=== PATIENT | male | born 1945 | race Caucasian/White ===

== ENCOUNTER 2022-08-28 07:06 | Inpatient (IN) | payer MEDICARE, OTHER ==
[~2022-08-28] VITALS: Ht 180.3 cm; Wt 72.7 kg
[2022-08-28] MEDS ORDERED: VENL-193 PO (07:36)
[2022-08-28] MEDS ORDERED: METF-1211 PO (07:36)
[2022-08-28] MEDS ORDERED: GABA-1181 PO (07:36)
[2022-08-28] MEDS ORDERED: GLIP5TAB12 PO (07:36)
[2022-08-28] MEDS ORDERED: ATOR10TA PO (07:36)
[2022-08-28] MEDS ORDERED: ASPI-1450 PO (07:36)
[2022-08-28] MEDS ORDERED: CYAN500T56 PO (07:36)
[2022-08-28] MEDS ORDERED: METO25 PO (07:36)
[2022-08-28] MEDS ORDERED: EMPA25TA3 PO (07:36)
[2022-08-28 08:30] LABS: BASOPHILS % (AUTO) 1.4 % (0.0-2.0); EOSINOPHILS % (AUTO) 0.8 % (1.0-6.0); HEMATOCRIT 38.1 % (41-53); LYMPHOCYTES # (AUTO) 0.8 K/uL (1.0-4.8); LYMPHOCYTES % (AUTO) 8.9 % (22.0-44.0); MEAN CORPUSCULAR HEMOGLOBIN 32.8 pg (26.0-34.0); MEAN CORPUSCULAR HGB CONC 34.1 G/dL (31.0-37.0); MEAN CORPUSCULAR VOLUME 96 fL (80-100); MONOCYTES # (AUTO) 0.6 K/uL (0.1-1.0); MONOCYTES % (AUTO) 6.4 % (2.0-9.0); NEUTROPHILS # (AUTO) 7.6 K/uL (1.8-7.7); NEUTROPHILS % (AUTO) 82.5 % (40.0-70.0); PLATELET COUNT (AUTO) 357 K/uL (150-450); RED BLOOD CELL COUNT(AUTO) 3.95 MIL/uL (4.50-5.90); RED CELL DISTRIBUTION WIDTH 13.8 % (11.5-14.5)
[2022-08-28 08:40] LABS: ANION GAP 9 mmol/L (8-16); CALCIUM, TOTAL 9.5 mg/dL (8.8-10.5); CARBON DIOXIDE 28 mmol/L (22-29); CHLORIDE 102 mmol/L (98-107); CREATININE 1.22 mg/dL (0.60-1.30); GLOMERULAR FILTR. RATE CALC 57 mL/min (>60); GLUCOSE,RANDOM 175 mg/dL (70-110); POTASSIUM 4.1 mmol/L (3.5-5.1); SODIUM SERUM 139 mmol/L (136-145); UREA NITROGEN, BLOOD 24 mg/dL (7-18)
[2022-08-28 08:47] LABS: ALANINE AMINOTRANSFERASE 21 U/L (12-78); ALBUMIN 3.5 g/dL (3.4-5.0); ALKALINE PHOSPHATASE 87 U/L (46-116); ASPARTATE AMINOTRANSFERASE 28 U/L (15-37); BILIRUBIN,TOTAL 0.5 mg/dL (0.1-1.0); TOTAL PROTEIN, SERUM 7.9 g/dL (6.4-8.2)
[2022-08-28 12:51] LABS: AMPHET/METH SCREEN,URINE NEGATIVE (NEGATIVE); BARBITURATE SCREEN, URINE NEGATIVE (NEGATIVE); BENZODIAZEPINES SCREEN,URINE NEGATIVE (NEGATIVE); CANNABINOID SCREEN,URINE NEGATIVE (NEGATIVE); COCAINE SCREEN,URINE NEGATIVE (NEGATIVE); METHADONE SCREEN, URINE NEGATIVE (NEGATIVE); OPIATE SCREEN,URINE NEGATIVE (NEGATIVE); PHENCYCLIDINE SCREEN,URINE NEGATIVE (NEGATIVE)
[2022-08-28] MEDS ORDERED: LORazepam 1 MG TABLET PO ONE ×2 (13:30→23:30)
[2022-08-28 16:22] LABS: APPEARANCE,URINE CLEAR (CLEAR); BILIRUBIN,URINE NEGATIVE (NEGATIVE); GLUCOSE, URINE (UA) >=1000 mg/dL (NEGATIVE); KETONES,URINE TRACE mg/dL (NEGATIVE); LEUKOCYTE ESTERASE ,URINE NEGATIVE (NEGATIVE); NITRATE,URINE NEGATIVE (NEGATIVE); OCCULT BLOOD,URINE NEGATIVE (NEGATIVE); PH,URINE 5.5 (5.0-8.0); PROTEIN,URINE NEGATIVE (NEGATIVE); UROBILINOGEN,URINE <=1.0 mg/dL (<=1.0)
[2022-08-28 16:45] LABS: BACTERIA,URINE None Seen /HPF (None Seen); RBC,URINE None Seen /HPF (0-2); SQUAMOUS EPITHELIAL CELL,UR Few /LPF (None Seen); WBC,URINE None Seen /HPF (0-5)
[2022-08-28] MEDS ORDERED: OLANZapine 5 MG TABLET PO ONE (17:00)
[2022-08-28] MEDS ORDERED: LORazepam 2 MG/ML VIAL IM ONE (17:15)
[2022-08-28] MEDS ORDERED: MIDAZOLAM HCL 2 MG/2 ML VIAL IM ONE (18:00)
[2022-08-28] MEDS ORDERED: LORazepam 1 MG TABLET PO PRN (23:30)
[2022-08-29] MEDS ORDERED: HALOPERIDOL LACTATE 5 MG/ML VIAL IM ONE
[2022-08-29] MEDS ORDERED: DiphenhydrAMINE HCL 50 MG/ML VIAL IM ONE ×2 (00:15)
[2022-08-29 02:16] LABS: COVID AG,FIA SOURCE NASOPHARYNGEAL
[2022-08-29] MEDS ORDERED: GlipiZIDE 5 MG TABLET PO SCH (06:30)
[2022-08-29] MEDS ORDERED: MetFORMIN HCL 500 MG ER TABLET PO SCH (08:00)
[2022-08-29] MEDS ORDERED: GABAPENTIN 300 MG CAPSULE PO ONE (09:00)
[2022-08-29] MEDS ORDERED: VENLAFAXINE HCL 75 MG ER CAPSULE PO SCH (09:00)
[2022-08-29] MEDS ORDERED: MetFORMIN HCL 500 MG ER TABLET PO ONE (09:00)
[2022-08-29] MEDS ORDERED: GlipiZIDE 5 MG TABLET PO ONE (09:00)
[2022-08-29] MEDS ORDERED: METOPROLOL TARTRATE 25 MG TABLET PO ONE (09:00)
[2022-08-29] MEDS ORDERED: VENLAFAXINE HCL 75 MG ER CAPSULE PO ONE (09:00)
[2022-08-29] MEDS ORDERED: LORazepam 2 MG TABLET ONE (11:49)
[2022-08-29 17:52] LABS: GLUCOSE,POINT OF CARE 144 MG/DL (70-110)
[2022-08-29] MEDS ORDERED: VENL-67 PO (19:57)
[2022-08-29] MEDS ORDERED: ONDANSETRON HCL 4 MG/2 ML VIAL IVP PRN (20:00)
[2022-08-29] MEDS ORDERED: IOHEXOL 350 MG/ML 100 ML VIAL ONE (20:26)
[2022-08-29] MEDS ORDERED: SODIUM CHLORIDE 0.9% 100 ML ONE (20:26)
[2022-08-29] MEDS: DOCUSATE SODIUM 100 MG CAPSULE PO SCH (21:00)
[2022-08-29] MEDS: QUEtiapine FUMARATE 25 MG TABLET PO SCH (21:28)
[2022-08-29] MEDS: HEPARIN SODIUM,PORCINE 5,000 UNITS/ML VIAL SQ SCH (23:53)
[2022-08-30] MEDS ORDERED: DEXTROSE 50%-WATER 25 GM/50 ML SYRINGE IVP PRN
[2022-08-30] MEDS: HEPARIN SODIUM,PORCINE 5,000 UNITS/ML VIAL SQ SCH ×3 (08:43→23:58)
[2022-08-30] MEDS: ASPIRIN 81 MG CHEWABLE TABLET PO SCH (08:44)
[2022-08-30] MEDS: DOCUSATE SODIUM 100 MG CAPSULE PO SCH ×2 (08:45→20:20)
[2022-08-30] MEDS: CHOLECALCIFEROL (VIT D3) 2,000 UNITS [50 MCG] TABLET PO SCH (11:51)
[2022-08-30] MEDS ORDERED: LORazepam 2 MG/ML VIAL IVP PRN (18:00)
[2022-08-30] MEDS ORDERED: DiphenhydrAMINE HCL 50 MG/ML VIAL IM ONE (18:00)
[2022-08-30] MEDS ORDERED: HALOPERIDOL LACTATE 5 MG/ML VIAL IM ONE (18:00)
[2022-08-30] MEDS: ATORVASTATIN CALCIUM 20 MG TABLET PO SCH (20:22)
[2022-08-30] MEDS: QUEtiapine FUMARATE 25 MG TABLET PO SCH (20:22)
[2022-08-30 21:33] VITALS: BP 134/71
[2022-08-31] MEDS: INSULIN LISPRO 100 UNITS/ML SQ PRN ×4 (00:13→21:13)
[2022-08-31 02:16] LABS: GLUCOMETER DEV NAME(LOC) 6N.1; GLUCOSE,POINT OF CARE 196 MG/DL (70-110)
[2022-08-31 04:09] VITALS: BP 146/65
[2022-08-31 07:32] VITALS: BP 144/77
[2022-08-31 07:52] LABS: GLUCOMETER DEV NAME(LOC) 6N.1; GLUCOSE,POINT OF CARE 163 MG/DL (70-110)
[2022-08-31] MEDS: CHOLECALCIFEROL (VIT D3) 2,000 UNITS [50 MCG] TABLET PO SCH (08:22)
[2022-08-31] MEDS: HEPARIN SODIUM,PORCINE 5,000 UNITS/ML VIAL SQ SCH ×3 (08:22→23:51)
[2022-08-31] MEDS: DOCUSATE SODIUM 100 MG CAPSULE PO SCH ×2 (08:22→20:12)
[2022-08-31] MEDS: ASPIRIN 81 MG CHEWABLE TABLET PO SCH (08:23)
[2022-08-31 13:50] VITALS: BP 129/65
[2022-08-31 15:24] VITALS: BP 130/69
[2022-08-31 19:20] VITALS: BP 122/58
[2022-08-31] MEDS: ATORVASTATIN CALCIUM 20 MG TABLET PO SCH (20:12)
[2022-08-31] MEDS: QUEtiapine FUMARATE 25 MG TABLET PO SCH (20:12)
[2022-08-31 22:06] LABS: GLUCOMETER DEV NAME(LOC) 6N.1; GLUCOSE,POINT OF CARE 190 MG/DL (70-110)
[2022-08-31 22:07] LABS: GLUCOMETER DEV NAME(LOC) 6N.1; GLUCOSE,POINT OF CARE 286 MG/DL (70-110)
[2022-08-31 22:07] LABS: GLUCOMETER DEV NAME(LOC) 6N.1; GLUCOSE,POINT OF CARE 247 MG/DL (70-110)
[2022-09-01 03:11] VITALS: BP 136/74
[2022-09-01] MEDS: INSULIN LISPRO 100 UNITS/ML SQ PRN ×4 (05:43→20:56)
[2022-09-01 06:46] LABS: GLUCOMETER DEV NAME(LOC) 6N.1; GLUCOSE,POINT OF CARE 241 MG/DL (70-110)
[2022-09-01 07:59] VITALS: BP 140/89
[2022-09-01] MEDS: CHOLECALCIFEROL (VIT D3) 2,000 UNITS [50 MCG] TABLET PO SCH (08:08)
[2022-09-01] MEDS: DOCUSATE SODIUM 100 MG CAPSULE PO SCH ×2 (08:08→20:47)
[2022-09-01] MEDS: HEPARIN SODIUM,PORCINE 5,000 UNITS/ML VIAL SQ SCH ×3 (08:09→23:34)
[2022-09-01] MEDS: ASPIRIN 81 MG CHEWABLE TABLET PO SCH (08:09)
[2022-09-01 13:06] LABS: GLUCOMETER DEV NAME(LOC) 6S.1B; GLUCOSE,POINT OF CARE 293 MG/DL (70-110)
[2022-09-01] MEDS ORDERED: LORazepam 2 MG/ML VIAL IVP PRN (13:45)
[2022-09-01] MEDS: LORazepam 2 MG/ML VIAL IM PRN (14:08)
[2022-09-01] MEDS: HALOPERIDOL LACTATE 5 MG/ML VIAL IM PRN (14:15)
[2022-09-01 14:55] VITALS: BP 138/78
[2022-09-01 18:21] LABS: GLUCOMETER DEV NAME(LOC) 6S.1B; GLUCOSE,POINT OF CARE 221 MG/DL (70-110)
[2022-09-01 19:25] VITALS: BP 144/67
[2022-09-01] MEDS: ATORVASTATIN CALCIUM 20 MG TABLET PO SCH (20:47)
[2022-09-01] MEDS: QUEtiapine FUMARATE 25 MG TABLET PO SCH (20:47)
[2022-09-01 23:41] LABS: GLUCOMETER DEV NAME(LOC) 6S.1B; GLUCOSE,POINT OF CARE 199 MG/DL (70-110)
[2022-09-02 03:45] VITALS: BP 139/74
[2022-09-02] MEDS: INSULIN LISPRO 100 UNITS/ML SQ PRN ×4 (05:49→20:26)
[2022-09-02 06:36] LABS: GLUCOMETER DEV NAME(LOC) 6S.1B; GLUCOSE,POINT OF CARE 206 MG/DL (70-110)
[2022-09-02] MEDS: DOCUSATE SODIUM 100 MG CAPSULE PO SCH ×2 (08:01→20:24)
[2022-09-02] MEDS: CHOLECALCIFEROL (VIT D3) 2,000 UNITS [50 MCG] TABLET PO SCH (08:01)
[2022-09-02] MEDS: ASPIRIN 81 MG CHEWABLE TABLET PO SCH (08:01)
[2022-09-02] MEDS: HEPARIN SODIUM,PORCINE 5,000 UNITS/ML VIAL SQ SCH ×3 (08:07→23:22)
[2022-09-02 08:31] VITALS: BP 156/68
[2022-09-02] MEDS ORDERED: QUEtiapine FUMARATE 25 MG TABLET PO SCH (09:00)
[2022-09-02] MEDS: QUEtiapine FUMARATE 25 MG TABLET PO SCH ×2 (12:23→20:24)
[2022-09-02] MEDS: ACETAMINOPHEN 325 MG TABLET PO PRN (14:57)
[2022-09-02 15:15] VITALS: BP 138/76
[2022-09-02] MEDS: HALOPERIDOL LACTATE 5 MG/ML VIAL IM PRN (17:29)
[2022-09-02] MEDS: MetFORMIN HCL 500 MG TABLET PO SCH (17:52)
[2022-09-02 20:00] VITALS: BP 144/73
[2022-09-02] MEDS: ATORVASTATIN CALCIUM 20 MG TABLET PO SCH (20:24)
[2022-09-02] MEDS: LORazepam 2 MG/ML VIAL IM PRN (22:05)
[2022-09-03 03:21] LABS: GLUCOMETER DEV NAME(LOC) 6N.1; GLUCOSE,POINT OF CARE 289 MG/DL (70-110)
[2022-09-03 03:21] LABS: GLUCOMETER DEV NAME(LOC) 6N.1; GLUCOSE,POINT OF CARE 282 MG/DL (70-110)
[2022-09-03 05:15] VITALS: BP 128/69
[2022-09-03] MEDS: INSULIN LISPRO 100 UNITS/ML SQ PRN ×4 (05:21→20:45)
[2022-09-03 07:28] VITALS: BP 114/75
[2022-09-03 08:36] LABS: GLUCOMETER DEV NAME(LOC) 6N.1; GLUCOSE,POINT OF CARE 193 MG/DL (70-110)
[2022-09-03] MEDS: CHOLECALCIFEROL (VIT D3) 2,000 UNITS [50 MCG] TABLET PO SCH (09:09)
[2022-09-03] MEDS: HEPARIN SODIUM,PORCINE 5,000 UNITS/ML VIAL SQ SCH ×3 (09:09→16:25)
[2022-09-03] MEDS: ASPIRIN 81 MG CHEWABLE TABLET PO SCH (09:10)
[2022-09-03] MEDS: DOCUSATE SODIUM 100 MG CAPSULE PO SCH ×2 (09:10→20:38)
[2022-09-03] MEDS: MetFORMIN HCL 500 MG TABLET PO SCH ×2 (09:10→17:49)
[2022-09-03] MEDS: QUEtiapine FUMARATE 25 MG TABLET PO SCH ×2 (09:11→20:38)
[2022-09-03 11:14] VITALS: BP 120/73
[2022-09-03 13:51] LABS: GLUCOMETER DEV NAME(LOC) 6N.1; GLUCOSE,POINT OF CARE 229 MG/DL (70-110)
[2022-09-03 15:11] VITALS: BP 152/78
[2022-09-03] MEDS: HALOPERIDOL LACTATE 5 MG/ML VIAL IM PRN (16:46)
[2022-09-03 17:58] LABS: GLUCOMETER DEV NAME(LOC) 6S.1B; GLUCOSE,POINT OF CARE 269 MG/DL (70-110)
[2022-09-03] MEDS: ATORVASTATIN CALCIUM 20 MG TABLET PO SCH (20:38)
[2022-09-03 20:42] VITALS: BP 128/75
[2022-09-03 22:21] LABS: GLUCOMETER DEV NAME(LOC) 6S.1B; GLUCOSE,POINT OF CARE 216 MG/DL (70-110)
[2022-09-04] MEDS: HEPARIN SODIUM,PORCINE 5,000 UNITS/ML VIAL SQ SCH ×4 (00:25→23:32)
[2022-09-04 04:46] VITALS: BP 121/69
[2022-09-04] MEDS: INSULIN LISPRO 100 UNITS/ML SQ PRN ×4 (05:39→20:11)
[2022-09-04] MEDS: MetFORMIN HCL 500 MG TABLET PO SCH ×2 (07:58→17:41)
[2022-09-04] MEDS: CHOLECALCIFEROL (VIT D3) 2,000 UNITS [50 MCG] TABLET PO SCH (08:03)
[2022-09-04] MEDS: DOCUSATE SODIUM 100 MG CAPSULE PO SCH ×2 (08:03→20:02)
[2022-09-04] MEDS: ASPIRIN 81 MG CHEWABLE TABLET PO SCH (08:03)
[2022-09-04] MEDS: QUEtiapine FUMARATE 25 MG TABLET PO SCH ×2 (08:04→20:02)
[2022-09-04 08:05] VITALS: BP 105/76
[2022-09-04] MEDS ORDERED: QUEtiapine FUMARATE 25 MG TABLET PO ONE (10:00)
[2022-09-04 11:11] LABS: GLUCOMETER DEV NAME(LOC) 6S.1B; GLUCOSE,POINT OF CARE 213 MG/DL (70-110)
[2022-09-04 13:19] VITALS: BP 121/75
[2022-09-04 17:56] LABS: GLUCOMETER DEV NAME(LOC) 6S.1B; GLUCOSE,POINT OF CARE 246 MG/DL (70-110)
[2022-09-04 19:18] VITALS: BP 145/94
[2022-09-04] MEDS: ATORVASTATIN CALCIUM 20 MG TABLET PO SCH (20:02)
[2022-09-04 20:06] LABS: GLUCOMETER DEV NAME(LOC) 6N.1; GLUCOSE,POINT OF CARE 247 MG/DL (70-110)
[2022-09-04 22:01] LABS: GLUCOMETER DEV NAME(LOC) 6S.1B; GLUCOSE,POINT OF CARE 288 MG/DL (70-110)
[2022-09-05 04:30] VITALS: BP 134/67
[2022-09-05] MEDS: INSULIN LISPRO 100 UNITS/ML SQ PRN ×3 (06:01→20:54)
[2022-09-05 06:37] LABS: GLUCOMETER DEV NAME(LOC) 6N.1; GLUCOSE,POINT OF CARE 202 MG/DL (70-110)
[2022-09-05 07:37] VITALS: BP 125/76
[2022-09-05] MEDS: MetFORMIN HCL 500 MG TABLET PO SCH ×2 (09:13→17:17)
[2022-09-05] MEDS: QUEtiapine FUMARATE 25 MG TABLET PO SCH ×2 (09:13→20:35)
[2022-09-05] MEDS: DOCUSATE SODIUM 100 MG CAPSULE PO SCH ×2 (09:14→20:35)
[2022-09-05] MEDS: ASPIRIN 81 MG CHEWABLE TABLET PO SCH (09:14)
[2022-09-05] MEDS: HEPARIN SODIUM,PORCINE 5,000 UNITS/ML VIAL SQ SCH ×2 (09:14→17:16)
[2022-09-05] MEDS: HALOPERIDOL LACTATE 5 MG/ML VIAL IM PRN (09:20)
[2022-09-05] MEDS: CHOLECALCIFEROL (VIT D3) 2,000 UNITS [50 MCG] TABLET PO SCH (09:29)
[2022-09-05 16:22] VITALS: BP 130/70
[2022-09-05 19:35] VITALS: BP 144/69
[2022-09-05] MEDS: ATORVASTATIN CALCIUM 20 MG TABLET PO SCH (20:35)
[2022-09-05 22:56] LABS: GLUCOMETER DEV NAME(LOC) 6N.1; GLUCOSE,POINT OF CARE 300 MG/DL (70-110)
[2022-09-05 22:57] LABS: GLUCOMETER DEV NAME(LOC) 6N.1; GLUCOSE,POINT OF CARE 177 MG/DL (70-110)
[2022-09-05 22:57] LABS: GLUCOMETER DEV NAME(LOC) 6N.1; GLUCOSE,POINT OF CARE 240 MG/DL (70-110)
[2022-09-06] MEDS: HEPARIN SODIUM,PORCINE 5,000 UNITS/ML VIAL SQ SCH ×4 (00:31→23:23)
[2022-09-06] MEDS: HALOPERIDOL LACTATE 5 MG/ML VIAL IM PRN ×2 (02:21→20:13)
[2022-09-06 03:45] VITALS: BP 102/61
[2022-09-06] MEDS: INSULIN LISPRO 100 UNITS/ML SQ PRN ×4 (06:22→20:11)
[2022-09-06 06:41] LABS: GLUCOMETER DEV NAME(LOC) 6N.2B; GLUCOSE,POINT OF CARE 198 MG/DL (70-110)
[2022-09-06 08:02] VITALS: BP 131/64
[2022-09-06] MEDS: QUEtiapine FUMARATE 25 MG TABLET PO SCH ×2 (09:16→20:10)
[2022-09-06] MEDS: CHOLECALCIFEROL (VIT D3) 2,000 UNITS [50 MCG] TABLET PO SCH (09:16)
[2022-09-06] MEDS: MetFORMIN HCL 500 MG TABLET PO SCH ×2 (09:17→18:00)
[2022-09-06] MEDS: DOCUSATE SODIUM 100 MG CAPSULE PO SCH ×2 (09:17→20:10)
[2022-09-06] MEDS: ASPIRIN 81 MG CHEWABLE TABLET PO SCH (09:17)
[2022-09-06] MEDS: LORazepam 2 MG/ML VIAL IM PRN (09:26)
[2022-09-06 13:51] LABS: GLUCOMETER DEV NAME(LOC) 6N.1; GLUCOSE,POINT OF CARE 261 MG/DL (70-110)
[2022-09-06 15:54] VITALS: BP 109/66
[2022-09-06 19:45] VITALS: BP 136/80
[2022-09-06] MEDS: ATORVASTATIN CALCIUM 20 MG TABLET PO SCH (20:10)
[2022-09-06 21:06] LABS: GLUCOMETER DEV NAME(LOC) 6N.1; GLUCOSE,POINT OF CARE 241 MG/DL (70-110)
[2022-09-07 02:16] LABS: GLUCOMETER DEV NAME(LOC) 6N.2B; GLUCOSE,POINT OF CARE 181 MG/DL (70-110)
[2022-09-07 05:45] VITALS: BP 115/54
[2022-09-07] MEDS: INSULIN LISPRO 100 UNITS/ML SQ PRN ×3 (06:35→20:36)
[2022-09-07 06:47] LABS: GLUCOMETER DEV NAME(LOC) 6N.2B; GLUCOSE,POINT OF CARE 209 MG/DL (70-110)
[2022-09-07 07:45] VITALS: BP 124/70
[2022-09-07] MEDS: QUEtiapine FUMARATE 25 MG TABLET PO SCH ×2 (08:06→20:34)
[2022-09-07] MEDS: ASPIRIN 81 MG CHEWABLE TABLET PO SCH (08:06)
[2022-09-07] MEDS: CHOLECALCIFEROL (VIT D3) 2,000 UNITS [50 MCG] TABLET PO SCH (08:06)
[2022-09-07] MEDS: DOCUSATE SODIUM 100 MG CAPSULE PO SCH ×2 (08:06→20:34)
[2022-09-07] MEDS: HEPARIN SODIUM,PORCINE 5,000 UNITS/ML VIAL SQ SCH ×3 (08:07→23:14)
[2022-09-07] MEDS: HALOPERIDOL LACTATE 5 MG/ML VIAL IM PRN ×2 (08:07→20:36)
[2022-09-07] MEDS: MetFORMIN HCL 850 MG TABLET PO SCH ×3 (09:46→18:00)
[2022-09-07 15:31] VITALS: BP 136/69
[2022-09-07 17:11] LABS: GLUCOMETER DEV NAME(LOC) 6S.1B; GLUCOSE,POINT OF CARE 226 MG/DL (70-110)
[2022-09-07 18:14] LABS: BASOPHILS % (AUTO) 0.4 % (0.0-2.0); EOSINOPHILS % (AUTO) 1.9 % (1.0-6.0); HEMATOCRIT 41.7 % (41-53); HEMOGLOBIN 13.8 g/dL (13.5-17.5); LYMPHOCYTES # (AUTO) 1.1 K/uL (1.0-4.8); LYMPHOCYTES % (AUTO) 16.1 % (22.0-44.0); MEAN CORPUSCULAR HEMOGLOBIN 31.7 pg (26.0-34.0); MEAN CORPUSCULAR HGB CONC 33.2 G/dL (31.0-37.0); MEAN CORPUSCULAR VOLUME 95 fL (80-100); MONOCYTES # (AUTO) 0.5 K/uL (0.1-1.0); MONOCYTES % (AUTO) 7.5 % (2.0-9.0); NEUTROPHILS # (AUTO) 4.9 K/uL (1.8-7.7); NEUTROPHILS % (AUTO) 74.1 % (40.0-70.0); PLATELET COUNT (AUTO) 298 K/uL (150-450); RED BLOOD CELL COUNT(AUTO) 4.37 MIL/uL (4.50-5.90)
[2022-09-07 18:19] LABS: ANION GAP 9 mmol/L (8-16); CALCIUM, TOTAL 9.4 mg/dL (8.8-10.5); CARBON DIOXIDE 29 mmol/L (22-29); CHLORIDE 96 mmol/L (98-107); CREATININE 1.13 mg/dL (0.60-1.30); GLOMERULAR FILTR. RATE CALC > 60 mL/min (>60); GLUCOSE,RANDOM 260 mg/dL (70-110); POTASSIUM 3.4 mmol/L (3.5-5.1); SODIUM SERUM 134 mmol/L (136-145); UREA NITROGEN, BLOOD 13 mg/dL (7-18)
[2022-09-07 19:45] VITALS: BP 127/82
[2022-09-07] MEDS: ATORVASTATIN CALCIUM 20 MG TABLET PO SCH (20:34)
[2022-09-07 23:07] LABS: GLUCOMETER DEV NAME(LOC) 6N.2B; GLUCOSE,POINT OF CARE 181 MG/DL (70-110)
[2022-09-07 23:07] LABS: GLUCOMETER DEV NAME(LOC) 6N.2B; GLUCOSE,POINT OF CARE 268 MG/DL (70-110)
[2022-09-08 06:00] VITALS: BP 130/69
[2022-09-08] MEDS: INSULIN LISPRO 100 UNITS/ML SQ PRN ×4 (06:17→20:31)
[2022-09-08] MEDS ORDERED: POTASSIUM CHLORIDE 20 MEQ ER TABLET PO ONE (07:45)
[2022-09-08 07:48] VITALS: BP 142/66
[2022-09-08] MEDS: HEPARIN SODIUM,PORCINE 5,000 UNITS/ML VIAL SQ SCH ×3 (08:45→23:31)
[2022-09-08] MEDS: MetFORMIN HCL 850 MG TABLET PO SCH ×2 (08:45→17:36)
[2022-09-08] MEDS: ASPIRIN 81 MG CHEWABLE TABLET PO SCH (08:46)
[2022-09-08] MEDS: CHOLECALCIFEROL (VIT D3) 2,000 UNITS [50 MCG] TABLET PO SCH (08:46)
[2022-09-08] MEDS: DOCUSATE SODIUM 100 MG CAPSULE PO SCH ×2 (08:46→20:13)
[2022-09-08] MEDS: QUEtiapine FUMARATE 25 MG TABLET PO SCH ×2 (08:46→20:12)
[2022-09-08 15:04] VITALS: BP 138/73
[2022-09-08 17:21] LABS: GLUCOMETER DEV NAME(LOC) 6N.1; GLUCOSE,POINT OF CARE 173 MG/DL (70-110)
[2022-09-08 18:01] LABS: GLUCOMETER DEV NAME(LOC) 6N.2B; GLUCOSE,POINT OF CARE 306 MG/DL (70-110)
[2022-09-08 18:02] LABS: GLUCOMETER DEV NAME(LOC) 6N.2B; GLUCOSE,POINT OF CARE 210 MG/DL (70-110)
[2022-09-08 19:12] VITALS: BP 144/72
[2022-09-08] MEDS: ATORVASTATIN CALCIUM 20 MG TABLET PO SCH (20:12)
[2022-09-08 21:36] LABS: GLUCOMETER DEV NAME(LOC) 6N.1; GLUCOSE,POINT OF CARE 223 MG/DL (70-110)
[2022-09-09 04:05] VITALS: BP 131/70
[2022-09-09] MEDS: HALOPERIDOL LACTATE 5 MG/ML VIAL IM PRN (04:28)
[2022-09-09] MEDS: INSULIN LISPRO 100 UNITS/ML SQ PRN ×4 (06:07→21:39)
[2022-09-09 06:46] LABS: GLUCOMETER DEV NAME(LOC) 6N.1; GLUCOSE,POINT OF CARE 193 MG/DL (70-110)
[2022-09-09] MEDS: HEPARIN SODIUM,PORCINE 5,000 UNITS/ML VIAL SQ SCH ×3 (08:17→23:24)
[2022-09-09] MEDS: DOCUSATE SODIUM 100 MG CAPSULE PO SCH ×2 (08:18→21:31)
[2022-09-09] MEDS: MetFORMIN HCL 850 MG TABLET PO SCH ×2 (08:18→18:11)
[2022-09-09] MEDS: CHOLECALCIFEROL (VIT D3) 2,000 UNITS [50 MCG] TABLET PO SCH (08:18)
[2022-09-09] MEDS: ASPIRIN 81 MG CHEWABLE TABLET PO SCH (08:19)
[2022-09-09] MEDS: QUEtiapine FUMARATE 25 MG TABLET PO SCH ×2 (08:19→21:31)
[2022-09-09 08:38] VITALS: BP 138/71
[2022-09-09 15:16] LABS: GLUCOMETER DEV NAME(LOC) 6S.1B; GLUCOSE,POINT OF CARE 266 MG/DL (70-110)
[2022-09-09 15:41] VITALS: BP 136/69
[2022-09-09 18:51] LABS: GLUCOMETER DEV NAME(LOC) 6N.1; GLUCOSE,POINT OF CARE 286 MG/DL (70-110)
[2022-09-09 19:40] VITALS: BP 133/74
[2022-09-09] MEDS: ATORVASTATIN CALCIUM 20 MG TABLET PO SCH (21:31)
[2022-09-10 04:55] VITALS: BP 114/62
[2022-09-10] MEDS: INSULIN LISPRO 100 UNITS/ML SQ PRN ×4 (06:06→20:35)
[2022-09-10] MEDS: ASPIRIN 81 MG CHEWABLE TABLET PO SCH (07:35)
[2022-09-10] MEDS: MetFORMIN HCL 850 MG TABLET PO SCH ×2 (07:35→18:07)
[2022-09-10] MEDS: DOCUSATE SODIUM 100 MG CAPSULE PO SCH ×2 (07:35→20:35)
[2022-09-10] MEDS: CHOLECALCIFEROL (VIT D3) 2,000 UNITS [50 MCG] TABLET PO SCH (07:35)
[2022-09-10] MEDS: HEPARIN SODIUM,PORCINE 5,000 UNITS/ML VIAL SQ SCH ×2 (07:36→15:59)
[2022-09-10] MEDS: QUEtiapine FUMARATE 25 MG TABLET PO SCH ×2 (07:36→20:35)
[2022-09-10 07:51] LABS: GLUCOMETER DEV NAME(LOC) 6N.1; GLUCOSE,POINT OF CARE 235 MG/DL (70-110)
[2022-09-10 07:51] LABS: GLUCOMETER DEV NAME(LOC) 6N.1; GLUCOSE,POINT OF CARE 191 MG/DL (70-110)
[2022-09-10 08:27] VITALS: BP 126/69
[2022-09-10] MEDS: LORazepam 2 MG/ML VIAL IM PRN (13:26)
[2022-09-10 15:01] VITALS: BP 142/61
[2022-09-10] MEDS ORDERED: LORazepam 2 MG/ML VIAL IM PRN (16:15)
[2022-09-10 19:40] VITALS: BP 146/55
[2022-09-10 20:11] LABS: GLUCOMETER DEV NAME(LOC) 6N.1; GLUCOSE,POINT OF CARE 293 MG/DL (70-110)
[2022-09-10 20:11] LABS: GLUCOMETER DEV NAME(LOC) 6N.1; GLUCOSE,POINT OF CARE 314 MG/DL (70-110)
[2022-09-10] MEDS: ATORVASTATIN CALCIUM 20 MG TABLET PO SCH (20:35)
[2022-09-11] MEDS: HEPARIN SODIUM,PORCINE 5,000 UNITS/ML VIAL SQ SCH ×3 (00:05→16:19)
[2022-09-11 04:33] VITALS: BP 136/67
[2022-09-11] MEDS: INSULIN LISPRO 100 UNITS/ML SQ PRN ×4 (05:37→20:52)
[2022-09-11] MEDS: MetFORMIN HCL 850 MG TABLET PO SCH ×2 (08:35→17:52)
[2022-09-11] MEDS: QUEtiapine FUMARATE 25 MG TABLET PO SCH ×2 (08:36→20:45)
[2022-09-11] MEDS: CHOLECALCIFEROL (VIT D3) 2,000 UNITS [50 MCG] TABLET PO SCH (08:36)
[2022-09-11] MEDS: DOCUSATE SODIUM 100 MG CAPSULE PO SCH ×2 (08:36→21:00)
[2022-09-11] MEDS: ASPIRIN 81 MG CHEWABLE TABLET PO SCH (08:36)
[2022-09-11 09:50] VITALS: BP 135/65
[2022-09-11 11:26] LABS: GLUCOMETER DEV NAME(LOC) 6N.1; GLUCOSE,POINT OF CARE 215 MG/DL (70-110)
[2022-09-11 11:26] LABS: GLUCOMETER DEV NAME(LOC) 6N.1; GLUCOSE,POINT OF CARE 252 MG/DL (70-110)
[2022-09-11 11:46] LABS: GLUCOMETER DEV NAME(LOC) 6N.1; GLUCOSE,POINT OF CARE 241 MG/DL (70-110)
[2022-09-11 15:00] VITALS: BP 136/73
[2022-09-11 19:15] VITALS: BP 116/73
[2022-09-11] MEDS: ATORVASTATIN CALCIUM 20 MG TABLET PO SCH (20:45)
[2022-09-11] MEDS: HALOPERIDOL LACTATE 5 MG/ML VIAL IM PRN (21:25)
[2022-09-11 21:52] LABS: GLUCOMETER DEV NAME(LOC) 6N.2B; GLUCOSE,POINT OF CARE 239 MG/DL (70-110)
[2022-09-11 21:52] LABS: GLUCOMETER DEV NAME(LOC) 6N.1; GLUCOSE,POINT OF CARE 286 MG/DL (70-110)
[2022-09-12] MEDS: HEPARIN SODIUM,PORCINE 5,000 UNITS/ML VIAL SQ SCH ×3 (01:00→16:06)
[2022-09-12] MEDS: LORazepam 2 MG/ML VIAL IM PRN (02:40)
[2022-09-12 05:30] VITALS: BP 119/78
[2022-09-12] MEDS: INSULIN LISPRO 100 UNITS/ML SQ PRN ×4 (05:42→20:59)
[2022-09-12] MEDS: ASPIRIN 81 MG CHEWABLE TABLET PO SCH (08:09)
[2022-09-12] MEDS: CHOLECALCIFEROL (VIT D3) 2,000 UNITS [50 MCG] TABLET PO SCH (08:10)
[2022-09-12] MEDS: MetFORMIN HCL 850 MG TABLET PO SCH ×2 (08:10→18:52)
[2022-09-12] MEDS: QUEtiapine FUMARATE 25 MG TABLET PO SCH ×2 (08:12→20:42)
[2022-09-12] MEDS: DOCUSATE SODIUM 100 MG CAPSULE PO SCH ×2 (08:26→20:42)
[2022-09-12 08:31] VITALS: BP 121/65
[2022-09-12 11:16] LABS: GLUCOMETER DEV NAME(LOC) 6N.1; GLUCOSE,POINT OF CARE 237 MG/DL (70-110)
[2022-09-12 13:21] LABS: GLUCOMETER DEV NAME(LOC) 6S.1B; GLUCOSE,POINT OF CARE 233 MG/DL (70-110)
[2022-09-12 15:13] VITALS: BP 116/69
[2022-09-12 19:11] LABS: GLUCOMETER DEV NAME(LOC) 6S.1B; GLUCOSE,POINT OF CARE 260 MG/DL (70-110)
[2022-09-12 19:38] VITALS: BP 138/63
[2022-09-12] MEDS: ATORVASTATIN CALCIUM 20 MG TABLET PO SCH (20:42)
[2022-09-12 21:21] LABS: GLUCOMETER DEV NAME(LOC) 6N.2B; GLUCOSE,POINT OF CARE 260 MG/DL (70-110)
[2022-09-13] MEDS: HEPARIN SODIUM,PORCINE 5,000 UNITS/ML VIAL SQ SCH ×4 (00:38→23:45)
[2022-09-13 03:30] VITALS: BP 114/63
[2022-09-13] MEDS: INSULIN LISPRO 100 UNITS/ML SQ PRN ×4 (05:53→20:55)
[2022-09-13 06:11] LABS: GLUCOMETER DEV NAME(LOC) 6N.2B; GLUCOSE,POINT OF CARE 248 MG/DL (70-110)
[2022-09-13 07:27] VITALS: BP 153/63
[2022-09-13] MEDS: QUEtiapine FUMARATE 25 MG TABLET PO SCH ×2 (07:32→20:01)
[2022-09-13] MEDS: CHOLECALCIFEROL (VIT D3) 2,000 UNITS [50 MCG] TABLET PO SCH (07:33)
[2022-09-13] MEDS: ASPIRIN 81 MG CHEWABLE TABLET PO SCH (07:33)
[2022-09-13] MEDS: DOCUSATE SODIUM 100 MG CAPSULE PO SCH ×2 (07:34→20:01)
[2022-09-13] MEDS: MetFORMIN HCL 500 MG TABLET PO SCH ×2 (07:43→17:39)
[2022-09-13 12:16] LABS: GLUCOMETER DEV NAME(LOC) 6N.1; GLUCOSE,POINT OF CARE 262 MG/DL (70-110)
[2022-09-13 15:03] VITALS: BP 115/59
[2022-09-13 19:05] LABS: GLUCOMETER DEV NAME(LOC) 6N.1; GLUCOSE,POINT OF CARE 227 MG/DL (70-110)
[2022-09-13 19:20] VITALS: BP 125/65
[2022-09-13] MEDS: ATORVASTATIN CALCIUM 20 MG TABLET PO SCH (20:01)
[2022-09-14] MEDS: HALOPERIDOL LACTATE 5 MG/ML VIAL IM PRN (01:49)
[2022-09-14 03:38] VITALS: BP 116/58
[2022-09-14 05:26] LABS: GLUCOMETER DEV NAME(LOC) 6N.1; GLUCOSE,POINT OF CARE 221 MG/DL (70-110)
[2022-09-14] MEDS: INSULIN LISPRO 100 UNITS/ML SQ PRN ×4 (06:16→21:16)
[2022-09-14 07:26] LABS: GLUCOMETER DEV NAME(LOC) 6N.2B; GLUCOSE,POINT OF CARE 188 MG/DL (70-110)
[2022-09-14 08:18] VITALS: BP 141/63
[2022-09-14] MEDS: CHOLECALCIFEROL (VIT D3) 2,000 UNITS [50 MCG] TABLET PO SCH (08:29)
[2022-09-14] MEDS: QUEtiapine FUMARATE 25 MG TABLET PO SCH ×2 (08:29→20:01)
[2022-09-14] MEDS: MetFORMIN HCL 500 MG TABLET PO SCH ×2 (08:29→17:12)
[2022-09-14] MEDS: ASPIRIN 81 MG CHEWABLE TABLET PO SCH (08:29)
[2022-09-14] MEDS: DOCUSATE SODIUM 100 MG CAPSULE PO SCH ×2 (08:30→20:00)
[2022-09-14] MEDS: HEPARIN SODIUM,PORCINE 5,000 UNITS/ML VIAL SQ SCH ×2 (08:31→16:03)
[2022-09-14 14:16] LABS: GLUCOMETER DEV NAME(LOC) 6N.2B; GLUCOSE,POINT OF CARE 200 MG/DL (70-110)
[2022-09-14 16:28] VITALS: BP 134/62
[2022-09-14] MEDS: ATORVASTATIN CALCIUM 20 MG TABLET PO SCH (20:01)
[2022-09-14 21:02] VITALS: BP 122/72
[2022-09-15] MEDS: HEPARIN SODIUM,PORCINE 5,000 UNITS/ML VIAL SQ SCH ×4 (00:03→23:23)
[2022-09-15] MEDS: ACETAMINOPHEN 325 MG TABLET PO PRN (00:03)
[2022-09-15] MEDS: HALOPERIDOL LACTATE 5 MG/ML VIAL IM PRN (01:31)
[2022-09-15 04:05] VITALS: BP 129/66
[2022-09-15 04:36] LABS: GLUCOMETER DEV NAME(LOC) 6N.2B; GLUCOSE,POINT OF CARE 166 MG/DL (70-110)
[2022-09-15 04:36] LABS: GLUCOMETER DEV NAME(LOC) 6N.2B; GLUCOSE,POINT OF CARE 207 MG/DL (70-110)
[2022-09-15] MEDS: INSULIN LISPRO 100 UNITS/ML SQ PRN ×3 (05:45→20:27)
[2022-09-15 08:18] VITALS: BP 126/68
[2022-09-15] MEDS: CHOLECALCIFEROL (VIT D3) 2,000 UNITS [50 MCG] TABLET PO SCH (08:18)
[2022-09-15] MEDS: DOCUSATE SODIUM 100 MG CAPSULE PO SCH ×2 (08:19→19:56)
[2022-09-15] MEDS: QUEtiapine FUMARATE 25 MG TABLET PO SCH ×2 (08:19→19:56)
[2022-09-15] MEDS: ASPIRIN 81 MG CHEWABLE TABLET PO SCH (08:19)
[2022-09-15] MEDS: MULTIVITAMINS WITH MINERALS, THERAPEUTIC TABLET PO SCH (08:19)
[2022-09-15] MEDS: MetFORMIN HCL 500 MG TABLET PO SCH ×2 (08:19→18:01)
[2022-09-15 15:20] VITALS: BP 109/60
[2022-09-15 19:30] VITALS: BP 118/66
[2022-09-15] MEDS: ATORVASTATIN CALCIUM 20 MG TABLET PO SCH (19:56)
[2022-09-15 20:00] LABS: GLUCOMETER DEV NAME(LOC) 6N.1; GLUCOSE,POINT OF CARE 186 MG/DL (70-110)
[2022-09-16 00:11] LABS: GLUCOMETER DEV NAME(LOC) 6N.2B; GLUCOSE,POINT OF CARE 196 MG/DL (70-110)
[2022-09-16 00:11] LABS: GLUCOMETER DEV NAME(LOC) 6N.2B; GLUCOSE,POINT OF CARE 122 MG/DL (70-110)
[2022-09-16 00:11] LABS: GLUCOMETER DEV NAME(LOC) 6N.2B; GLUCOSE,POINT OF CARE 224 MG/DL (70-110)
[2022-09-16] MEDS: LORazepam 2 MG/ML VIAL IM PRN (02:52)
[2022-09-16] MEDS: ACETAMINOPHEN 325 MG TABLET PO PRN (02:52)
[2022-09-16 04:00] VITALS: BP 130/74
[2022-09-16] MEDS: HALOPERIDOL LACTATE 5 MG/ML VIAL IM PRN (04:04)
[2022-09-16 05:30] VITALS: BP 114/75
[2022-09-16] MEDS: INSULIN LISPRO 100 UNITS/ML SQ PRN ×4 (06:21→21:18)
[2022-09-16] MEDS: MetFORMIN HCL 500 MG TABLET PO SCH ×2 (08:16→18:11)
[2022-09-16] MEDS: CHOLECALCIFEROL (VIT D3) 2,000 UNITS [50 MCG] TABLET PO SCH (08:16)
[2022-09-16] MEDS: MULTIVITAMINS WITH MINERALS, THERAPEUTIC TABLET PO SCH (08:17)
[2022-09-16] MEDS: ASPIRIN 81 MG CHEWABLE TABLET PO SCH (08:17)
[2022-09-16] MEDS: QUEtiapine FUMARATE 25 MG TABLET PO SCH ×2 (08:17→21:15)
[2022-09-16] MEDS: DOCUSATE SODIUM 100 MG CAPSULE PO SCH ×2 (08:17→21:15)
[2022-09-16] MEDS: HEPARIN SODIUM,PORCINE 5,000 UNITS/ML VIAL SQ SCH ×3 (08:17→23:26)
[2022-09-16 08:56] LABS: GLUCOMETER DEV NAME(LOC) 6N.2B; GLUCOSE,POINT OF CARE 219 MG/DL (70-110)
[2022-09-16 13:31] LABS: GLUCOMETER DEV NAME(LOC) 6N.1; GLUCOSE,POINT OF CARE 176 MG/DL (70-110)
[2022-09-16 16:00] VITALS: BP 135/62
[2022-09-16 19:25] VITALS: BP 130/70
[2022-09-16 20:06] LABS: GLUCOMETER DEV NAME(LOC) 6N.1; GLUCOSE,POINT OF CARE 215 MG/DL (70-110)
[2022-09-16] MEDS: ATORVASTATIN CALCIUM 20 MG TABLET PO SCH (21:15)
[2022-09-17] MEDS: LORazepam 2 MG/ML VIAL IM PRN (00:46)
[2022-09-17] MEDS: HALOPERIDOL LACTATE 5 MG/ML VIAL IM PRN (03:57)
[2022-09-17 04:00] VITALS: BP 126/76
[2022-09-17] MEDS: INSULIN LISPRO 100 UNITS/ML SQ PRN ×4 (06:03→21:20)
[2022-09-17 08:00] VITALS: BP 142/74
[2022-09-17] MEDS: ASPIRIN 81 MG CHEWABLE TABLET PO SCH (08:52)
[2022-09-17] MEDS: QUEtiapine FUMARATE 25 MG TABLET PO SCH ×2 (08:52→21:12)
[2022-09-17] MEDS: MULTIVITAMINS WITH MINERALS, THERAPEUTIC TABLET PO SCH (08:52)
[2022-09-17] MEDS: DOCUSATE SODIUM 100 MG CAPSULE PO SCH ×2 (08:53→21:09)
[2022-09-17] MEDS: HEPARIN SODIUM,PORCINE 5,000 UNITS/ML VIAL SQ SCH ×3 (08:53→23:30)
[2022-09-17] MEDS: MetFORMIN HCL 500 MG TABLET PO SCH ×2 (08:53→18:09)
[2022-09-17] MEDS: CHOLECALCIFEROL (VIT D3) 2,000 UNITS [50 MCG] TABLET PO SCH (09:00)
[2022-09-17 11:56] LABS: GLUCOMETER DEV NAME(LOC) 6N.1; GLUCOSE,POINT OF CARE 167 MG/DL (70-110)
[2022-09-17 11:56] LABS: GLUCOMETER DEV NAME(LOC) 6N.1; GLUCOSE,POINT OF CARE 203 MG/DL (70-110)
[2022-09-17 16:00] VITALS: BP 132/69
[2022-09-17 20:05] VITALS: BP 126/80
[2022-09-17] MEDS: ATORVASTATIN CALCIUM 20 MG TABLET PO SCH (21:11)
[2022-09-17 22:56] LABS: GLUCOMETER DEV NAME(LOC) 6N.1; GLUCOSE,POINT OF CARE 158 MG/DL (70-110)
[2022-09-18 03:21] LABS: GLUCOMETER DEV NAME(LOC) 6N.2B; GLUCOSE,POINT OF CARE 235 MG/DL (70-110)
[2022-09-18 03:21] LABS: GLUCOMETER DEV NAME(LOC) 6N.2B; GLUCOSE,POINT OF CARE 238 MG/DL (70-110)
[2022-09-18 03:49] VITALS: BP 136/68
[2022-09-18] MEDS: INSULIN LISPRO 100 UNITS/ML SQ PRN ×4 (05:30→21:28)
[2022-09-18 06:55] LABS: GLUCOMETER DEV NAME(LOC) 6N.1; GLUCOSE,POINT OF CARE 149 MG/DL (70-110)
[2022-09-18 08:00] VITALS: BP 140/73
[2022-09-18] MEDS: MULTIVITAMINS WITH MINERALS, THERAPEUTIC TABLET PO SCH (08:21)
[2022-09-18] MEDS: HEPARIN SODIUM,PORCINE 5,000 UNITS/ML VIAL SQ SCH ×3 (08:21→23:40)
[2022-09-18] MEDS: MetFORMIN HCL 500 MG TABLET PO SCH ×2 (08:22→17:39)
[2022-09-18] MEDS: DOCUSATE SODIUM 100 MG CAPSULE PO SCH ×2 (08:22→21:15)
[2022-09-18] MEDS: ASPIRIN 81 MG CHEWABLE TABLET PO SCH (08:22)
[2022-09-18] MEDS: QUEtiapine FUMARATE 25 MG TABLET PO SCH ×2 (08:27→21:16)
[2022-09-18] MEDS: CHOLECALCIFEROL (VIT D3) 2,000 UNITS [50 MCG] TABLET PO SCH (08:27)
[2022-09-18] MEDS ORDERED: MAGNESIUM HYDROXIDE SUSPENSION 30 ML UDCUP PO PRN (10:30)
[2022-09-18] MEDS ORDERED: BISACODYL 5 MG EC TABLET PO PRN (10:30)
[2022-09-18 12:51] LABS: GLUCOMETER DEV NAME(LOC) 6N.1; GLUCOSE,POINT OF CARE 229 MG/DL (70-110)
[2022-09-18] MEDS ORDERED: BISACODYL 10 MG RECTAL RECTAL SUPPOSITORY PR PRN (14:00)
[2022-09-18 16:26] VITALS: BP 131/69
[2022-09-18 17:51] LABS: GLUCOMETER DEV NAME(LOC) 6N.2B; GLUCOSE,POINT OF CARE 226 MG/DL (70-110)
[2022-09-18 20:04] VITALS: BP 126/71
[2022-09-18] MEDS: ATORVASTATIN CALCIUM 20 MG TABLET PO SCH (21:15)
[2022-09-19 00:06] LABS: GLUCOMETER DEV NAME(LOC) 6N.1; GLUCOSE,POINT OF CARE 188 MG/DL (70-110)
[2022-09-19] MEDS: LORazepam 2 MG/ML VIAL IM PRN (00:43)
[2022-09-19 03:50] VITALS: BP 141/80
[2022-09-19] MEDS: INSULIN LISPRO 100 UNITS/ML SQ PRN ×4 (06:36→20:18)
[2022-09-19 07:25] LABS: GLUCOMETER DEV NAME(LOC) 6N.2B; GLUCOSE,POINT OF CARE 181 MG/DL (70-110)
[2022-09-19 08:01] VITALS: BP 139/71
[2022-09-19] MEDS: DOCUSATE SODIUM 100 MG CAPSULE PO SCH ×2 (08:06→20:10)
[2022-09-19] MEDS: MULTIVITAMINS WITH MINERALS, THERAPEUTIC TABLET PO SCH (08:06)
[2022-09-19] MEDS: ASPIRIN 81 MG CHEWABLE TABLET PO SCH (08:06)
[2022-09-19] MEDS: HEPARIN SODIUM,PORCINE 5,000 UNITS/ML VIAL SQ SCH ×3 (08:06→23:35)
[2022-09-19] MEDS: CHOLECALCIFEROL (VIT D3) 2,000 UNITS [50 MCG] TABLET PO SCH (08:06)
[2022-09-19] MEDS: MetFORMIN HCL 500 MG TABLET PO SCH ×2 (08:06→17:18)
[2022-09-19] MEDS: QUEtiapine FUMARATE 25 MG TABLET PO SCH ×2 (08:06→20:10)
[2022-09-19 16:00] VITALS: BP 145/79
[2022-09-19] MEDS: ACETAMINOPHEN 325 MG TABLET PO PRN ×3 (16:15→23:37)
[2022-09-19 19:27] VITALS: BP 133/69
[2022-09-19] MEDS: ATORVASTATIN CALCIUM 20 MG TABLET PO SCH (20:10)
[2022-09-19 22:26] LABS: GLUCOMETER DEV NAME(LOC) 6N.2B; GLUCOSE,POINT OF CARE 151 MG/DL (70-110)
[2022-09-19 22:26] LABS: GLUCOMETER DEV NAME(LOC) 6N.2B; GLUCOSE,POINT OF CARE 191 MG/DL (70-110)
[2022-09-19 22:26] LABS: GLUCOMETER DEV NAME(LOC) 6N.2B; GLUCOSE,POINT OF CARE 220 MG/DL (70-110)
[2022-09-20] MEDS: HALOPERIDOL LACTATE 5 MG/ML VIAL IM PRN (03:12)
[2022-09-20] MEDS: INSULIN LISPRO 100 UNITS/ML SQ PRN ×4 (05:08→21:17)
[2022-09-20 07:11] LABS: GLUCOMETER DEV NAME(LOC) 6N.2B; GLUCOSE,POINT OF CARE 142 MG/DL (70-110)
[2022-09-20 07:19] VITALS: BP 130/62
[2022-09-20] MEDS: CHOLECALCIFEROL (VIT D3) 2,000 UNITS [50 MCG] TABLET PO SCH (07:59)
[2022-09-20] MEDS: DOCUSATE SODIUM 100 MG CAPSULE PO SCH ×2 (07:59→21:06)
[2022-09-20] MEDS: MULTIVITAMINS WITH MINERALS, THERAPEUTIC TABLET PO SCH (07:59)
[2022-09-20] MEDS: QUEtiapine FUMARATE 25 MG TABLET PO SCH ×2 (07:59→21:06)
[2022-09-20] MEDS: ASPIRIN 81 MG CHEWABLE TABLET PO SCH (07:59)
[2022-09-20] MEDS: MetFORMIN HCL 500 MG TABLET PO SCH ×2 (07:59→17:03)
[2022-09-20] MEDS: HEPARIN SODIUM,PORCINE 5,000 UNITS/ML VIAL SQ SCH ×2 (08:01→16:29)
[2022-09-20 17:22] VITALS: BP 127/69
[2022-09-20 19:27] LABS: GLUCOMETER DEV NAME(LOC) 6N.1; GLUCOSE,POINT OF CARE 159 MG/DL (70-110)
[2022-09-20 19:27] LABS: GLUCOMETER DEV NAME(LOC) 6N.2B; GLUCOSE,POINT OF CARE 142 MG/DL (70-110)
[2022-09-20 19:36] VITALS: BP 130/80
[2022-09-20] MEDS: ATORVASTATIN CALCIUM 20 MG TABLET PO SCH (21:06)
[2022-09-21 03:11] LABS: GLUCOMETER DEV NAME(LOC) 6N.2B; GLUCOSE,POINT OF CARE 160 MG/DL (70-110)
[2022-09-21 04:05] VITALS: BP 134/70
[2022-09-21] MEDS: ACETAMINOPHEN 325 MG TABLET PO PRN (04:24)
[2022-09-21] MEDS: INSULIN LISPRO 100 UNITS/ML SQ PRN ×4 (06:07→20:23)
[2022-09-21 07:25] VITALS: BP 129/65
[2022-09-21 07:46] LABS: GLUCOMETER DEV NAME(LOC) 6N.2B; GLUCOSE,POINT OF CARE 157 MG/DL (70-110)
[2022-09-21] MEDS: HEPARIN SODIUM,PORCINE 5,000 UNITS/ML VIAL SQ SCH ×4 (08:19→22:54)
[2022-09-21] MEDS: ASPIRIN 81 MG CHEWABLE TABLET PO SCH (08:20)
[2022-09-21] MEDS: MetFORMIN HCL 500 MG TABLET PO SCH ×2 (08:21→17:06)
[2022-09-21] MEDS: MULTIVITAMINS WITH MINERALS, THERAPEUTIC TABLET PO SCH (08:22)
[2022-09-21] MEDS: CHOLECALCIFEROL (VIT D3) 2,000 UNITS [50 MCG] TABLET PO SCH (08:24)
[2022-09-21] MEDS: QUEtiapine FUMARATE 25 MG TABLET PO SCH ×2 (08:24→20:24)
[2022-09-21] MEDS: DOCUSATE SODIUM 100 MG CAPSULE PO SCH ×2 (08:32→20:24)
[2022-09-21 11:52] LABS: GLUCOMETER DEV NAME(LOC) 6N.1; GLUCOSE,POINT OF CARE 166 MG/DL (70-110)
[2022-09-21 15:33] VITALS: BP 138/68
[2022-09-21] MEDS: ATORVASTATIN CALCIUM 20 MG TABLET PO SCH (20:24)
[2022-09-21 20:25] VITALS: BP 130/67
[2022-09-21 23:56] LABS: GLUCOMETER DEV NAME(LOC) 6N.1; GLUCOSE,POINT OF CARE 217 MG/DL (70-110)
[2022-09-21 23:56] LABS: GLUCOMETER DEV NAME(LOC) 6N.1; GLUCOSE,POINT OF CARE 170 MG/DL (70-110)
[2022-09-22] MEDS: HALOPERIDOL LACTATE 5 MG/ML VIAL IM PRN (02:58)
[2022-09-22] MEDS: INSULIN LISPRO 100 UNITS/ML SQ PRN ×4 (06:01→21:26)
[2022-09-22 06:04] VITALS: BP 119/64
[2022-09-22 06:51] LABS: GLUCOMETER DEV NAME(LOC) 6N.2B; GLUCOSE,POINT OF CARE 161 MG/DL (70-110)
[2022-09-22 07:17] VITALS: BP 124/68
[2022-09-22] MEDS: CHOLECALCIFEROL (VIT D3) 2,000 UNITS [50 MCG] TABLET PO SCH (09:27)
[2022-09-22] MEDS: MetFORMIN HCL 500 MG TABLET PO SCH ×2 (09:27→17:00)
[2022-09-22] MEDS: ASPIRIN 81 MG CHEWABLE TABLET PO SCH (09:28)
[2022-09-22] MEDS: MULTIVITAMINS WITH MINERALS, THERAPEUTIC TABLET PO SCH (09:28)
[2022-09-22] MEDS: QUEtiapine FUMARATE 25 MG TABLET PO SCH ×2 (09:28→20:54)
[2022-09-22] MEDS: DOCUSATE SODIUM 100 MG CAPSULE PO SCH ×2 (09:31→20:54)
[2022-09-22] MEDS: HEPARIN SODIUM,PORCINE 5,000 UNITS/ML VIAL SQ SCH ×3 (09:32→23:32)
[2022-09-22 15:47] VITALS: BP 117/59
[2022-09-22 17:51] LABS: GLUCOMETER DEV NAME(LOC) 6N.2B; GLUCOSE,POINT OF CARE 295 MG/DL (70-110)
[2022-09-22 19:06] LABS: GLUCOMETER DEV NAME(LOC) 6N.1; GLUCOSE,POINT OF CARE 233 MG/DL (70-110)
[2022-09-22 19:38] VITALS: BP 124/58
[2022-09-22] MEDS: ATORVASTATIN CALCIUM 20 MG TABLET PO SCH (20:54)
[2022-09-22 21:36] LABS: GLUCOMETER DEV NAME(LOC) 6N.2B; GLUCOSE,POINT OF CARE 213 MG/DL (70-110)
[2022-09-23 04:35] VITALS: BP 121/61
[2022-09-23] MEDS: INSULIN LISPRO 100 UNITS/ML SQ PRN ×4 (06:08→20:54)
[2022-09-23] MEDS: ACETAMINOPHEN 325 MG TABLET PO PRN (06:31)
[2022-09-23 07:11] LABS: BASOPHILS % (AUTO) 0.5 % (0.0-2.0); EOSINOPHILS % (AUTO) 1.6 % (1.0-6.0); HEMATOCRIT 39.7 % (41-53); HEMOGLOBIN 13.4 g/dL (13.5-17.5); LYMPHOCYTES # (AUTO) 1.3 K/uL (1.0-4.8); LYMPHOCYTES % (AUTO) 23.9 % (22.0-44.0); MEAN CORPUSCULAR HEMOGLOBIN 32.2 pg (26.0-34.0); MEAN CORPUSCULAR HGB CONC 33.8 G/dL (31.0-37.0); MEAN CORPUSCULAR VOLUME 95 fL (80-100); MONOCYTES # (AUTO) 0.4 K/uL (0.1-1.0); MONOCYTES % (AUTO) 7.5 % (2.0-9.0); NEUTROPHILS # (AUTO) 3.7 K/uL (1.8-7.7); NEUTROPHILS % (AUTO) 66.5 % (40.0-70.0); PLATELET COUNT (AUTO) 243 K/uL (150-450); RED BLOOD CELL COUNT(AUTO) 4.16 MIL/uL (4.50-5.90); RED CELL DISTRIBUTION WIDTH 14.6 % (11.5-14.5)
[2022-09-23 07:19] LABS: ALANINE AMINOTRANSFERASE 26 U/L (12-78); ALBUMIN 3.6 g/dL (3.4-5.0); ALKALINE PHOSPHATASE 79 U/L (46-116); ANION GAP 4 mmol/L (8-16); ASPARTATE AMINOTRANSFERASE 32 U/L (15-37); BILIRUBIN,TOTAL 0.7 mg/dL (0.1-1.0); CALCIUM, TOTAL 9.3 mg/dL (8.8-10.5); CARBON DIOXIDE 30 mmol/L (22-29); CHLORIDE 104 mmol/L (98-107); CREATININE 1.02 mg/dL (0.60-1.30); GLOMERULAR FILTR. RATE CALC > 60 mL/min (>60); GLUCOSE,RANDOM 215 mg/dL (70-110); POTASSIUM 3.8 mmol/L (3.5-5.1); SODIUM SERUM 138 mmol/L (136-145); TOTAL PROTEIN, SERUM 7.4 g/dL (6.4-8.2); UREA NITROGEN, BLOOD 15 mg/dL (7-18)
[2022-09-23] MEDS: MetFORMIN HCL 500 MG TABLET PO SCH ×2 (07:59→17:19)
[2022-09-23] MEDS: QUEtiapine FUMARATE 25 MG TABLET PO SCH ×2 (08:00→20:18)
[2022-09-23] MEDS: CHOLECALCIFEROL (VIT D3) 2,000 UNITS [50 MCG] TABLET PO SCH (08:00)
[2022-09-23] MEDS: ASPIRIN 81 MG CHEWABLE TABLET PO SCH (08:00)
[2022-09-23] MEDS: MULTIVITAMINS WITH MINERALS, THERAPEUTIC TABLET PO SCH (08:01)
[2022-09-23] MEDS: HEPARIN SODIUM,PORCINE 5,000 UNITS/ML VIAL SQ SCH ×2 (08:01→16:07)
[2022-09-23] MEDS: DOCUSATE SODIUM 100 MG CAPSULE PO SCH ×2 (08:01→20:18)
[2022-09-23 08:30] VITALS: BP 118/65
[2022-09-23 11:36] LABS: GLUCOMETER DEV NAME(LOC) 6N.1; GLUCOSE,POINT OF CARE 210 MG/DL (70-110)
[2022-09-23 12:00] VITALS: BP 115/60
[2022-09-23 16:00] VITALS: BP 120/75
[2022-09-23 17:21] LABS: GLUCOMETER DEV NAME(LOC) 6N.2B; GLUCOSE,POINT OF CARE 181 MG/DL (70-110)
[2022-09-23 18:56] LABS: GLUCOMETER DEV NAME(LOC) 6N.1; GLUCOSE,POINT OF CARE 250 MG/DL (70-110)
[2022-09-23 19:33] VITALS: BP 155/80
[2022-09-23] MEDS: ETHYL ALCOHOL 62% ANTISEPTIC NASAL SANITIZER 0.6 ML AMPUL NASAL SCH (20:18)
[2022-09-23] MEDS: ATORVASTATIN CALCIUM 20 MG TABLET PO SCH (20:18)
[2022-09-23] MEDS: HALOPERIDOL LACTATE 5 MG/ML VIAL IM PRN (20:23)
[2022-09-23] MEDS: LORazepam 2 MG/ML VIAL IM PRN (20:25)
[2022-09-23 23:51] LABS: GLUCOMETER DEV NAME(LOC) 6N.1; GLUCOSE,POINT OF CARE 234 MG/DL (70-110)
[2022-09-24] MEDS: HEPARIN SODIUM,PORCINE 5,000 UNITS/ML VIAL SQ SCH ×3 (00:34→16:08)
[2022-09-24 04:04] VITALS: BP 120/67
[2022-09-24] MEDS: INSULIN LISPRO 100 UNITS/ML SQ PRN ×4 (06:01→22:11)
[2022-09-24 06:37] LABS: GLUCOMETER DEV NAME(LOC) 6N.2B; GLUCOSE,POINT OF CARE 252 MG/DL (70-110)
[2022-09-24 07:19] VITALS: BP 124/68
[2022-09-24] MEDS: MULTIVITAMINS WITH MINERALS, THERAPEUTIC TABLET PO SCH (08:20)
[2022-09-24] MEDS: CHOLECALCIFEROL (VIT D3) 2,000 UNITS [50 MCG] TABLET PO SCH (08:20)
[2022-09-24] MEDS: QUEtiapine FUMARATE 25 MG TABLET PO SCH ×2 (08:20→22:02)
[2022-09-24] MEDS: DOCUSATE SODIUM 100 MG CAPSULE PO SCH ×2 (08:20→22:02)
[2022-09-24] MEDS: ASPIRIN 81 MG CHEWABLE TABLET PO SCH (08:20)
[2022-09-24] MEDS: MetFORMIN HCL 500 MG TABLET PO SCH ×2 (08:20→17:19)
[2022-09-24] MEDS: ETHYL ALCOHOL 62% ANTISEPTIC NASAL SANITIZER 0.6 ML AMPUL NASAL SCH ×2 (08:23→22:02)
[2022-09-24] MEDS: LORazepam 2 MG/ML VIAL IM PRN (08:24)
[2022-09-24 15:10] VITALS: BP 122/70
[2022-09-24] MEDS: ATORVASTATIN CALCIUM 20 MG TABLET PO SCH (22:02)
[2022-09-24 22:13] VITALS: BP 126/62
[2022-09-24 23:56] LABS: GLUCOMETER DEV NAME(LOC) 6N.1; GLUCOSE,POINT OF CARE 153 MG/DL (70-110)
[2022-09-24 23:56] LABS: GLUCOMETER DEV NAME(LOC) 6N.1; GLUCOSE,POINT OF CARE 229 MG/DL (70-110)
[2022-09-24 23:56] LABS: GLUCOMETER DEV NAME(LOC) 6N.2B; GLUCOSE,POINT OF CARE 136 MG/DL (70-110)
[2022-09-25 04:10] VITALS: BP 133/74
[2022-09-25] MEDS: INSULIN LISPRO 100 UNITS/ML SQ PRN ×4 (05:51→21:20)
[2022-09-25 07:01] LABS: GLUCOMETER DEV NAME(LOC) 6N.2B; GLUCOSE,POINT OF CARE 187 MG/DL (70-110)
[2022-09-25] MEDS: CHOLECALCIFEROL (VIT D3) 2,000 UNITS [50 MCG] TABLET PO SCH (08:31)
[2022-09-25] MEDS: MetFORMIN HCL 500 MG TABLET PO SCH ×2 (08:31→17:37)
[2022-09-25] MEDS: HEPARIN SODIUM,PORCINE 5,000 UNITS/ML VIAL SQ SCH ×3 (08:31→16:46)
[2022-09-25] MEDS: DOCUSATE SODIUM 100 MG CAPSULE PO SCH ×2 (08:31→20:37)
[2022-09-25] MEDS: QUEtiapine FUMARATE 25 MG TABLET PO SCH ×2 (08:31→20:37)
[2022-09-25] MEDS: ASPIRIN 81 MG CHEWABLE TABLET PO SCH (08:31)
[2022-09-25] MEDS: MULTIVITAMINS WITH MINERALS, THERAPEUTIC TABLET PO SCH (08:31)
[2022-09-25] MEDS: ETHYL ALCOHOL 62% ANTISEPTIC NASAL SANITIZER 0.6 ML AMPUL NASAL SCH ×2 (08:32→20:37)
[2022-09-25 09:02] VITALS: BP 137/77
[2022-09-25 13:41] LABS: GLUCOMETER DEV NAME(LOC) 6N.1; GLUCOSE,POINT OF CARE 176 MG/DL (70-110)
[2022-09-25 15:20] VITALS: BP 127/67
[2022-09-25 19:47] VITALS: BP 109/83
[2022-09-25 20:07] LABS: GLUCOMETER DEV NAME(LOC) 6N.2B; GLUCOSE,POINT OF CARE 239 MG/DL (70-110)
[2022-09-25] MEDS: ATORVASTATIN CALCIUM 20 MG TABLET PO SCH (20:37)
[2022-09-26 00:16] LABS: GLUCOMETER DEV NAME(LOC) 6N.2B; GLUCOSE,POINT OF CARE 195 MG/DL (70-110)
[2022-09-26] MEDS: HEPARIN SODIUM,PORCINE 5,000 UNITS/ML VIAL SQ SCH ×4 (00:26→23:09)
[2022-09-26] MEDS: ACETAMINOPHEN 325 MG TABLET PO PRN (03:20)
[2022-09-26 04:37] VITALS: BP 122/64
[2022-09-26] MEDS: INSULIN LISPRO 100 UNITS/ML SQ PRN ×4 (05:51→20:44)
[2022-09-26 07:25] VITALS: BP 137/71
[2022-09-26 07:37] LABS: BASOPHILS % (AUTO) 0.5 % (0.0-2.0); EOSINOPHILS % (AUTO) 0.9 % (1.0-6.0); HEMOGLOBIN 14.8 g/dL (13.5-17.5); LYMPHOCYTES # (AUTO) 1.5 K/uL (1.0-4.8); LYMPHOCYTES % (AUTO) 18.1 % (22.0-44.0); MEAN CORPUSCULAR HEMOGLOBIN 32.5 pg (26.0-34.0); MEAN CORPUSCULAR HGB CONC 33.6 G/dL (31.0-37.0); MEAN CORPUSCULAR VOLUME 97 fL (80-100); MONOCYTES # (AUTO) 0.6 K/uL (0.1-1.0); NEUTROPHILS % (AUTO) 73.5 % (40.0-70.0); PLATELET COUNT (AUTO) 263 K/uL (150-450); RED BLOOD CELL COUNT(AUTO) 4.54 MIL/uL (4.50-5.90); RED CELL DISTRIBUTION WIDTH 14.9 % (11.5-14.5)
[2022-09-26 08:06] LABS: ANION GAP 11 mmol/L (8-16); CALCIUM, TOTAL 10.1 mg/dL (8.8-10.5); CARBON DIOXIDE 26 mmol/L (22-29); CHLORIDE 101 mmol/L (98-107); CREATININE 1.16 mg/dL (0.60-1.30); GLOMERULAR FILTR. RATE CALC > 60 mL/min (>60); GLUCOSE,RANDOM 161 mg/dL (70-110); POTASSIUM 3.9 mmol/L (3.5-5.1); SODIUM SERUM 138 mmol/L (136-145); UREA NITROGEN, BLOOD 21 mg/dL (7-18)
[2022-09-26] MEDS: MULTIVITAMINS WITH MINERALS, THERAPEUTIC TABLET PO SCH (08:13)
[2022-09-26] MEDS: ASPIRIN 81 MG CHEWABLE TABLET PO SCH (08:13)
[2022-09-26] MEDS: CHOLECALCIFEROL (VIT D3) 2,000 UNITS [50 MCG] TABLET PO SCH (08:13)
[2022-09-26] MEDS: ETHYL ALCOHOL 62% ANTISEPTIC NASAL SANITIZER 0.6 ML AMPUL NASAL SCH ×2 (08:13→20:26)
[2022-09-26] MEDS: MetFORMIN HCL 500 MG TABLET PO SCH ×2 (08:14→17:40)
[2022-09-26] MEDS: DOCUSATE SODIUM 100 MG CAPSULE PO SCH ×2 (08:14→20:28)
[2022-09-26] MEDS: QUEtiapine FUMARATE 25 MG TABLET PO SCH ×2 (08:14→20:26)
[2022-09-26 11:26] LABS: GLUCOMETER DEV NAME(LOC) 6N.2B; GLUCOSE,POINT OF CARE 164 MG/DL (70-110)
[2022-09-26 14:31] LABS: GLUCOMETER DEV NAME(LOC) 6N.2B; GLUCOSE,POINT OF CARE 224 MG/DL (70-110)
[2022-09-26 15:23] VITALS: BP 109/79
[2022-09-26 18:12] LABS: GLUCOMETER DEV NAME(LOC) 6N.2B; GLUCOSE,POINT OF CARE 238 MG/DL (70-110)
[2022-09-26 19:45] VITALS: BP 137/85
[2022-09-26] MEDS: ATORVASTATIN CALCIUM 20 MG TABLET PO SCH (20:27)
[2022-09-26 23:21] LABS: GLUCOMETER DEV NAME(LOC) 6N.1; GLUCOSE,POINT OF CARE 162 MG/DL (70-110)
[2022-09-27] MEDS: HALOPERIDOL LACTATE 5 MG/ML VIAL IM PRN (01:34)
[2022-09-27 05:30] VITALS: BP 131/61
[2022-09-27] MEDS: INSULIN LISPRO 100 UNITS/ML SQ PRN ×4 (06:10→21:31)
[2022-09-27 07:24] VITALS: BP 121/62
[2022-09-27] MEDS: HEPARIN SODIUM,PORCINE 5,000 UNITS/ML VIAL SQ SCH ×3 (08:24→23:50)
[2022-09-27] MEDS: QUEtiapine FUMARATE 25 MG TABLET PO SCH ×2 (08:25→20:23)
[2022-09-27] MEDS: ETHYL ALCOHOL 62% ANTISEPTIC NASAL SANITIZER 0.6 ML AMPUL NASAL SCH ×2 (08:25→20:23)
[2022-09-27] MEDS: MULTIVITAMINS WITH MINERALS, THERAPEUTIC TABLET PO SCH (08:25)
[2022-09-27] MEDS: CHOLECALCIFEROL (VIT D3) 2,000 UNITS [50 MCG] TABLET PO SCH (08:25)
[2022-09-27] MEDS: ASPIRIN 81 MG CHEWABLE TABLET PO SCH (08:25)
[2022-09-27] MEDS: MetFORMIN HCL 500 MG TABLET PO SCH ×2 (08:25→17:00)
[2022-09-27] MEDS: DOCUSATE SODIUM 100 MG CAPSULE PO SCH ×2 (08:25→20:23)
[2022-09-27 11:21] LABS: GLUCOMETER DEV NAME(LOC) 6N.2B; GLUCOSE,POINT OF CARE 192 MG/DL (70-110)
[2022-09-27 12:31] LABS: GLUCOMETER DEV NAME(LOC) 6N.2B; GLUCOSE,POINT OF CARE 181 MG/DL (70-110)
[2022-09-27 16:31] VITALS: BP_SYST 128; BP_SYST 82; BP_DIAS 72; BP_DIAS 82
[2022-09-27 18:06] LABS: GLUCOMETER DEV NAME(LOC) 6N.1; GLUCOSE,POINT OF CARE 149 MG/DL (70-110)
[2022-09-27 19:28] VITALS: BP 128/66
[2022-09-27] MEDS: ATORVASTATIN CALCIUM 20 MG TABLET PO SCH (20:23)
[2022-09-27 20:41] LABS: GLUCOMETER DEV NAME(LOC) 6N.1; GLUCOSE,POINT OF CARE 158 MG/DL (70-110)
[2022-09-28 04:55] VITALS: BP 123/69
[2022-09-28] MEDS: INSULIN LISPRO 100 UNITS/ML SQ PRN ×4 (06:04→21:38)
[2022-09-28 07:16] LABS: GLUCOMETER DEV NAME(LOC) 6N.2B; GLUCOSE,POINT OF CARE 201 MG/DL (70-110)
[2022-09-28] MEDS: CHOLECALCIFEROL (VIT D3) 2,000 UNITS [50 MCG] TABLET PO SCH (08:21)
[2022-09-28] MEDS: QUEtiapine FUMARATE 25 MG TABLET PO SCH ×2 (08:21→19:52)
[2022-09-28] MEDS: MetFORMIN HCL 500 MG TABLET PO SCH ×2 (08:21→17:35)
[2022-09-28] MEDS: DOCUSATE SODIUM 100 MG CAPSULE PO SCH ×2 (08:22→19:52)
[2022-09-28] MEDS: HEPARIN SODIUM,PORCINE 5,000 UNITS/ML VIAL SQ SCH ×3 (08:22→23:18)
[2022-09-28] MEDS: ASPIRIN 81 MG CHEWABLE TABLET PO SCH (08:22)
[2022-09-28] MEDS: MULTIVITAMINS WITH MINERALS, THERAPEUTIC TABLET PO SCH (08:22)
[2022-09-28 08:32] VITALS: BP 128/62
[2022-09-28] MEDS: ETHYL ALCOHOL 62% ANTISEPTIC NASAL SANITIZER 0.6 ML AMPUL NASAL SCH ×2 (09:00→19:53)
[2022-09-28 16:03] VITALS: BP 117/61
[2022-09-28 17:22] LABS: GLUCOMETER DEV NAME(LOC) 6N.1; GLUCOSE,POINT OF CARE 245 MG/DL (70-110)
[2022-09-28 17:22] LABS: GLUCOMETER DEV NAME(LOC) 6N.1; GLUCOSE,POINT OF CARE 210 MG/DL (70-110)
[2022-09-28] MEDS: ATORVASTATIN CALCIUM 20 MG TABLET PO SCH (19:52)
[2022-09-28 20:01] VITALS: BP 120/70
[2022-09-28 20:17] LABS: GLUCOMETER DEV NAME(LOC) 6N.1; GLUCOSE,POINT OF CARE 156 MG/DL (70-110)
[2022-09-29 04:30] VITALS: BP 141/69
[2022-09-29] MEDS: INSULIN LISPRO 100 UNITS/ML SQ PRN ×4 (06:02→21:22)
[2022-09-29 06:21] LABS: GLUCOMETER DEV NAME(LOC) 6N.2B; GLUCOSE,POINT OF CARE 178 MG/DL (70-110)
[2022-09-29] MEDS: ASPIRIN 81 MG CHEWABLE TABLET PO SCH (08:15)
[2022-09-29] MEDS: CHOLECALCIFEROL (VIT D3) 2,000 UNITS [50 MCG] TABLET PO SCH (08:15)
[2022-09-29] MEDS: MetFORMIN HCL 500 MG TABLET PO SCH ×2 (08:15→17:55)
[2022-09-29] MEDS: QUEtiapine FUMARATE 25 MG TABLET PO SCH ×2 (08:15→20:45)
[2022-09-29] MEDS: HEPARIN SODIUM,PORCINE 5,000 UNITS/ML VIAL SQ SCH ×2 (08:15→16:49)
[2022-09-29] MEDS: DOCUSATE SODIUM 100 MG CAPSULE PO SCH ×2 (08:16→20:45)
[2022-09-29] MEDS: MULTIVITAMINS WITH MINERALS, THERAPEUTIC TABLET PO SCH (08:16)
[2022-09-29] MEDS: ETHYL ALCOHOL 62% ANTISEPTIC NASAL SANITIZER 0.6 ML AMPUL NASAL SCH ×2 (08:16→20:44)
[2022-09-29 08:39] VITALS: BP 138/72
[2022-09-29 16:44] VITALS: BP 129/69
[2022-09-29 18:11] LABS: GLUCOMETER DEV NAME(LOC) 6N.1; GLUCOSE,POINT OF CARE 254 MG/DL (70-110)
[2022-09-29 18:11] LABS: GLUCOMETER DEV NAME(LOC) 6N.1; GLUCOSE,POINT OF CARE 180 MG/DL (70-110)
[2022-09-29 19:31] VITALS: BP 124/82
[2022-09-29] MEDS: ATORVASTATIN CALCIUM 20 MG TABLET PO SCH (20:45)
[2022-09-29 23:41] LABS: GLUCOMETER DEV NAME(LOC) 6N.2B; GLUCOSE,POINT OF CARE 193 MG/DL (70-110)
[2022-09-30] MEDS: HEPARIN SODIUM,PORCINE 5,000 UNITS/ML VIAL SQ SCH ×3 (00:11→16:02)
[2022-09-30 05:01] VITALS: BP 122/58
[2022-09-30] MEDS: INSULIN LISPRO 100 UNITS/ML SQ PRN ×4 (05:46→21:08)
[2022-09-30 06:46] LABS: GLUCOMETER DEV NAME(LOC) 6N.2B; GLUCOSE,POINT OF CARE 183 MG/DL (70-110)
[2022-09-30] MEDS: MetFORMIN HCL 500 MG TABLET PO SCH ×2 (08:29→17:55)
[2022-09-30] MEDS: DOCUSATE SODIUM 100 MG CAPSULE PO SCH ×2 (08:29→20:52)
[2022-09-30] MEDS: QUEtiapine FUMARATE 25 MG TABLET PO SCH ×2 (08:29→20:51)
[2022-09-30] MEDS: MULTIVITAMINS WITH MINERALS, THERAPEUTIC TABLET PO SCH (08:29)
[2022-09-30] MEDS: ASPIRIN 81 MG CHEWABLE TABLET PO SCH (08:29)
[2022-09-30] MEDS: CHOLECALCIFEROL (VIT D3) 2,000 UNITS [50 MCG] TABLET PO SCH (08:30)
[2022-09-30] MEDS: ETHYL ALCOHOL 62% ANTISEPTIC NASAL SANITIZER 0.6 ML AMPUL NASAL SCH ×2 (08:30→20:50)
[2022-09-30 09:11] VITALS: BP 108/52
[2022-09-30 12:15] VITALS: BP 126/55
[2022-09-30 18:00] VITALS: BP 106/69
[2022-09-30] MEDS: ATORVASTATIN CALCIUM 20 MG TABLET PO SCH (20:50)
[2022-09-30 21:15] VITALS: BP 109/63
[2022-09-30 22:46] LABS: GLUCOMETER DEV NAME(LOC) 6N.2B; GLUCOSE,POINT OF CARE 217 MG/DL (70-110)
[2022-09-30 22:47] LABS: GLUCOMETER DEV NAME(LOC) 6N.2B; GLUCOSE,POINT OF CARE 173 MG/DL (70-110)
[2022-10-01] MEDS: HEPARIN SODIUM,PORCINE 5,000 UNITS/ML VIAL SQ SCH ×3 (00:32→16:05)
[2022-10-01] MEDS: HALOPERIDOL LACTATE 5 MG/ML VIAL IM PRN (02:50)
[2022-10-01 04:37] LABS: GLUCOMETER DEV NAME(LOC) 6N.1; GLUCOSE,POINT OF CARE 217 MG/DL (70-110)
[2022-10-01 05:01] VITALS: BP 118/69
[2022-10-01] MEDS: INSULIN LISPRO 100 UNITS/ML SQ PRN ×4 (06:11→21:56)
[2022-10-01 07:12] VITALS: BP 128/62
[2022-10-01 07:31] LABS: GLUCOMETER DEV NAME(LOC) 6N.2B; GLUCOSE,POINT OF CARE 201 MG/DL (70-110)
[2022-10-01] MEDS: MetFORMIN HCL 500 MG TABLET PO SCH ×2 (08:01→17:51)
[2022-10-01] MEDS: ETHYL ALCOHOL 62% ANTISEPTIC NASAL SANITIZER 0.6 ML AMPUL NASAL SCH ×2 (08:38→21:43)
[2022-10-01] MEDS: QUEtiapine FUMARATE 25 MG TABLET PO SCH ×2 (08:39→21:44)
[2022-10-01] MEDS: MULTIVITAMINS WITH MINERALS, THERAPEUTIC TABLET PO SCH (08:39)
[2022-10-01] MEDS: DOCUSATE SODIUM 100 MG CAPSULE PO SCH ×2 (08:39→21:43)
[2022-10-01] MEDS: ASPIRIN 81 MG CHEWABLE TABLET PO SCH (08:39)
[2022-10-01] MEDS: CHOLECALCIFEROL (VIT D3) 2,000 UNITS [50 MCG] TABLET PO SCH (08:39)
[2022-10-01 15:35] VITALS: BP 110/50
[2022-10-01 19:33] VITALS: BP 118/62
[2022-10-01 20:26] LABS: GLUCOMETER DEV NAME(LOC) 6N.2B; GLUCOSE,POINT OF CARE 253 MG/DL (70-110)
[2022-10-01] MEDS: ATORVASTATIN CALCIUM 20 MG TABLET PO SCH (21:44)
[2022-10-02] MEDS: HALOPERIDOL LACTATE 5 MG/ML VIAL IM PRN (03:03)
[2022-10-02 04:58] VITALS: BP 115/65
[2022-10-02] MEDS: INSULIN LISPRO 100 UNITS/ML SQ PRN ×4 (06:10→20:44)
[2022-10-02 07:01] LABS: GLUCOMETER DEV NAME(LOC) 6N.1; GLUCOSE,POINT OF CARE 172 MG/DL (70-110)
[2022-10-02 07:01] LABS: GLUCOMETER DEV NAME(LOC) 6N.1; GLUCOSE,POINT OF CARE 220 MG/DL (70-110)
[2022-10-02 07:01] LABS: GLUCOMETER DEV NAME(LOC) 6N.2B; GLUCOSE,POINT OF CARE 186 MG/DL (70-110)
[2022-10-02 08:07] VITALS: BP 130/60
[2022-10-02] MEDS: MetFORMIN HCL 500 MG TABLET PO SCH ×2 (08:15→17:55)
[2022-10-02] MEDS: QUEtiapine FUMARATE 25 MG TABLET PO SCH ×2 (08:16→20:07)
[2022-10-02] MEDS: ETHYL ALCOHOL 62% ANTISEPTIC NASAL SANITIZER 0.6 ML AMPUL NASAL SCH ×2 (08:16→20:08)
[2022-10-02] MEDS: CHOLECALCIFEROL (VIT D3) 2,000 UNITS [50 MCG] TABLET PO SCH (08:16)
[2022-10-02] MEDS: MULTIVITAMINS WITH MINERALS, THERAPEUTIC TABLET PO SCH (08:16)
[2022-10-02] MEDS: ASPIRIN 81 MG CHEWABLE TABLET PO SCH (08:16)
[2022-10-02] MEDS: DOCUSATE SODIUM 100 MG CAPSULE PO SCH ×2 (08:16→20:08)
[2022-10-02] MEDS: HEPARIN SODIUM,PORCINE 5,000 UNITS/ML VIAL SQ SCH ×3 (08:16→16:10)
[2022-10-02 13:36] LABS: GLUCOMETER DEV NAME(LOC) 6N.1; GLUCOSE,POINT OF CARE 193 MG/DL (70-110)
[2022-10-02 16:00] VITALS: BP 129/67
[2022-10-02 19:31] LABS: GLUCOMETER DEV NAME(LOC) 6N.1; GLUCOSE,POINT OF CARE 221 MG/DL (70-110)
[2022-10-02 19:37] VITALS: BP 117/51
[2022-10-02] MEDS: ACETAMINOPHEN 325 MG TABLET PO PRN (20:07)
[2022-10-02] MEDS: ATORVASTATIN CALCIUM 20 MG TABLET PO SCH (20:07)
[2022-10-03 00:10] LABS: GLUCOMETER DEV NAME(LOC) 6N.1; GLUCOSE,POINT OF CARE 220 MG/DL (70-110)
[2022-10-03] MEDS: HEPARIN SODIUM,PORCINE 5,000 UNITS/ML VIAL SQ SCH ×3 (01:17→16:12)
[2022-10-03 04:16] VITALS: BP 121/58
[2022-10-03 08:01] LABS: GLUCOMETER DEV NAME(LOC) 6N.2B; GLUCOSE,POINT OF CARE 201 MG/DL (70-110)
[2022-10-03 08:21] VITALS: BP 122/64
[2022-10-03] MEDS: QUEtiapine FUMARATE 25 MG TABLET PO SCH ×2 (08:24→20:24)
[2022-10-03] MEDS: MetFORMIN HCL 500 MG TABLET PO SCH ×2 (08:24→17:39)
[2022-10-03] MEDS: ETHYL ALCOHOL 62% ANTISEPTIC NASAL SANITIZER 0.6 ML AMPUL NASAL SCH ×2 (08:24→20:25)
[2022-10-03] MEDS: ASPIRIN 81 MG CHEWABLE TABLET PO SCH (08:24)
[2022-10-03] MEDS: DOCUSATE SODIUM 100 MG CAPSULE PO SCH ×2 (08:24→20:24)
[2022-10-03] MEDS: CHOLECALCIFEROL (VIT D3) 2,000 UNITS [50 MCG] TABLET PO SCH (08:24)
[2022-10-03] MEDS: MULTIVITAMINS WITH MINERALS, THERAPEUTIC TABLET PO SCH (08:24)
[2022-10-03] MEDS: INSULIN LISPRO 100 UNITS/ML SQ PRN ×3 (11:55→20:59)
[2022-10-03 15:42] VITALS: BP 146/79
[2022-10-03] MEDS: ACETAMINOPHEN 325 MG TABLET PO PRN (18:49)
[2022-10-03 19:21] VITALS: BP 121/69
[2022-10-03 19:21] LABS: GLUCOMETER DEV NAME(LOC) 6N.2B; GLUCOSE,POINT OF CARE 221 MG/DL (70-110)
[2022-10-03 19:21] LABS: GLUCOMETER DEV NAME(LOC) 6N.2B; GLUCOSE,POINT OF CARE 198 MG/DL (70-110)
[2022-10-03] MEDS: ATORVASTATIN CALCIUM 20 MG TABLET PO SCH (20:24)
[2022-10-03 21:56] LABS: GLUCOMETER DEV NAME(LOC) 6N.2B; GLUCOSE,POINT OF CARE 226 MG/DL (70-110)
[2022-10-04] MEDS: HEPARIN SODIUM,PORCINE 5,000 UNITS/ML VIAL SQ SCH ×3 (00:08→16:51)
[2022-10-04 03:05] VITALS: BP 140/63
[2022-10-04] MEDS: HALOPERIDOL LACTATE 5 MG/ML VIAL IM PRN (03:10)
[2022-10-04] MEDS: INSULIN LISPRO 100 UNITS/ML SQ PRN ×3 (06:34→20:48)
[2022-10-04 07:21] LABS: GLUCOMETER DEV NAME(LOC) 6N.2B; GLUCOSE,POINT OF CARE 181 MG/DL (70-110)
[2022-10-04 08:35] VITALS: BP 135/69
[2022-10-04] MEDS: MULTIVITAMINS WITH MINERALS, THERAPEUTIC TABLET PO SCH (08:35)
[2022-10-04] MEDS: CHOLECALCIFEROL (VIT D3) 2,000 UNITS [50 MCG] TABLET PO SCH (08:35)
[2022-10-04] MEDS: ASPIRIN 81 MG CHEWABLE TABLET PO SCH (08:36)
[2022-10-04] MEDS: DOCUSATE SODIUM 100 MG CAPSULE PO SCH ×2 (08:36→20:39)
[2022-10-04] MEDS: QUEtiapine FUMARATE 25 MG TABLET PO SCH ×2 (08:36→20:38)
[2022-10-04] MEDS: MetFORMIN HCL 500 MG TABLET PO SCH ×2 (08:36→16:50)
[2022-10-04] MEDS: ETHYL ALCOHOL 62% ANTISEPTIC NASAL SANITIZER 0.6 ML AMPUL NASAL SCH ×2 (08:36→20:37)
[2022-10-04 14:01] LABS: GLUCOMETER DEV NAME(LOC) 6N.2B; GLUCOSE,POINT OF CARE 233 MG/DL (70-110)
[2022-10-04 15:24] VITALS: BP 107/58
[2022-10-04 19:30] VITALS: BP 137/65
[2022-10-04] MEDS: ACETAMINOPHEN 325 MG TABLET PO PRN (20:38)
[2022-10-04] MEDS: ATORVASTATIN CALCIUM 20 MG TABLET PO SCH (20:38)
[2022-10-04 21:41] LABS: GLUCOMETER DEV NAME(LOC) 6N.2B; GLUCOSE,POINT OF CARE 142 MG/DL (70-110)
[2022-10-04 21:41] LABS: GLUCOMETER DEV NAME(LOC) 6N.1; GLUCOSE,POINT OF CARE 236 MG/DL (70-110)
[2022-10-05] MEDS: HEPARIN SODIUM,PORCINE 5,000 UNITS/ML VIAL SQ SCH ×4 (00:18→23:19)
[2022-10-05 04:00] VITALS: BP 107/72
[2022-10-05] MEDS: INSULIN LISPRO 100 UNITS/ML SQ PRN ×3 (05:36→17:47)
[2022-10-05 07:29] VITALS: BP 136/76
[2022-10-05] MEDS: DOCUSATE SODIUM 100 MG CAPSULE PO SCH ×2 (08:02→20:01)
[2022-10-05] MEDS: MULTIVITAMINS WITH MINERALS, THERAPEUTIC TABLET PO SCH (08:02)
[2022-10-05] MEDS: QUEtiapine FUMARATE 25 MG TABLET PO SCH ×2 (08:02→20:01)
[2022-10-05] MEDS: MetFORMIN HCL 500 MG TABLET PO SCH ×2 (08:02→17:45)
[2022-10-05] MEDS: CHOLECALCIFEROL (VIT D3) 2,000 UNITS [50 MCG] TABLET PO SCH (08:02)
[2022-10-05] MEDS: ASPIRIN 81 MG CHEWABLE TABLET PO SCH (08:03)
[2022-10-05] MEDS: ETHYL ALCOHOL 62% ANTISEPTIC NASAL SANITIZER 0.6 ML AMPUL NASAL SCH ×2 (08:09→20:01)
[2022-10-05 08:51] LABS: GLUCOMETER DEV NAME(LOC) 6N.2B; GLUCOSE,POINT OF CARE 208 MG/DL (70-110)
[2022-10-05 13:31] LABS: GLUCOMETER DEV NAME(LOC) 6N.1; GLUCOSE,POINT OF CARE 263 MG/DL (70-110)
[2022-10-05 15:14] VITALS: BP 109/73
[2022-10-05 18:26] LABS: GLUCOMETER DEV NAME(LOC) 6N.1; GLUCOSE,POINT OF CARE 256 MG/DL (70-110)
[2022-10-05 19:11] VITALS: BP 136/77
[2022-10-05] MEDS: ATORVASTATIN CALCIUM 20 MG TABLET PO SCH (20:00)
[2022-10-05] MEDS: ACETAMINOPHEN 325 MG TABLET PO PRN (20:01)
[2022-10-05 23:41] LABS: GLUCOMETER DEV NAME(LOC) 6N.2B; GLUCOSE,POINT OF CARE 148 MG/DL (70-110)
[2022-10-06 05:41] LABS: GLUCOMETER DEV NAME(LOC) 6N.1; GLUCOSE,POINT OF CARE 195 MG/DL (70-110)
[2022-10-06 05:58] VITALS: BP 126/73
[2022-10-06] MEDS: INSULIN LISPRO 100 UNITS/ML SQ PRN ×4 (06:27→19:51)
[2022-10-06] MEDS: CHOLECALCIFEROL (VIT D3) 2,000 UNITS [50 MCG] TABLET PO SCH (08:30)
[2022-10-06] MEDS: MetFORMIN HCL 500 MG TABLET PO SCH ×2 (08:30→16:34)
[2022-10-06] MEDS: ETHYL ALCOHOL 62% ANTISEPTIC NASAL SANITIZER 0.6 ML AMPUL NASAL SCH ×2 (08:30→19:46)
[2022-10-06] MEDS: QUEtiapine FUMARATE 25 MG TABLET PO SCH ×2 (08:30→19:46)
[2022-10-06] MEDS: ASPIRIN 81 MG CHEWABLE TABLET PO SCH (08:30)
[2022-10-06] MEDS: MULTIVITAMINS WITH MINERALS, THERAPEUTIC TABLET PO SCH (08:31)
[2022-10-06] MEDS: HEPARIN SODIUM,PORCINE 5,000 UNITS/ML VIAL SQ SCH ×3 (08:31→23:08)
[2022-10-06] MEDS: DOCUSATE SODIUM 100 MG CAPSULE PO SCH ×2 (08:31→19:46)
[2022-10-06 08:42] VITALS: BP 135/66
[2022-10-06 16:00] VITALS: BP 129/69
[2022-10-06 18:16] LABS: GLUCOMETER DEV NAME(LOC) 6N.1; GLUCOSE,POINT OF CARE 242 MG/DL (70-110)
[2022-10-06 18:16] LABS: GLUCOMETER DEV NAME(LOC) 6N.1; GLUCOSE,POINT OF CARE 285 MG/DL (70-110)
[2022-10-06] MEDS: ACETAMINOPHEN 325 MG TABLET PO PRN (19:46)
[2022-10-06] MEDS: ATORVASTATIN CALCIUM 20 MG TABLET PO SCH (19:46)
[2022-10-06 19:56] VITALS: BP 116/59
[2022-10-06 20:51] LABS: GLUCOMETER DEV NAME(LOC) 6N.1; GLUCOSE,POINT OF CARE 176 MG/DL (70-110)
[2022-10-07] MEDS: ACETAMINOPHEN 325 MG TABLET PO PRN ×2 (03:04→16:20)
[2022-10-07 04:27] VITALS: BP 123/65
[2022-10-07] MEDS: INSULIN LISPRO 100 UNITS/ML SQ PRN ×4 (05:59→19:49)
[2022-10-07 06:07] LABS: GLUCOMETER DEV NAME(LOC) 6N.1; GLUCOSE,POINT OF CARE 200 MG/DL (70-110)
[2022-10-07] MEDS: HEPARIN SODIUM,PORCINE 5,000 UNITS/ML VIAL SQ SCH ×2 (08:09→16:20)
[2022-10-07 08:10] VITALS: BP 131/77
[2022-10-07] MEDS: ASPIRIN 81 MG CHEWABLE TABLET PO SCH (08:10)
[2022-10-07] MEDS: CHOLECALCIFEROL (VIT D3) 2,000 UNITS [50 MCG] TABLET PO SCH (08:10)
[2022-10-07] MEDS: MetFORMIN HCL 500 MG TABLET PO SCH ×2 (08:10→16:20)
[2022-10-07] MEDS: DOCUSATE SODIUM 100 MG CAPSULE PO SCH ×2 (08:13→19:48)
[2022-10-07] MEDS: ETHYL ALCOHOL 62% ANTISEPTIC NASAL SANITIZER 0.6 ML AMPUL NASAL SCH ×2 (08:13→19:49)
[2022-10-07] MEDS: QUEtiapine FUMARATE 25 MG TABLET PO SCH ×2 (08:14→19:48)
[2022-10-07] MEDS: MULTIVITAMINS WITH MINERALS, THERAPEUTIC TABLET PO SCH (08:14)
[2022-10-07 11:21] LABS: GLUCOMETER DEV NAME(LOC) 6N.2B; GLUCOSE,POINT OF CARE 229 MG/DL (70-110)
[2022-10-07 11:38] LABS: BASOPHILS % (AUTO) 1.3 % (0.0-2.0); EOSINOPHILS % (AUTO) 1.9 % (1.0-6.0); HEMATOCRIT 36.8 % (41-53); HEMOGLOBIN 12.7 g/dL (13.5-17.5); LYMPHOCYTES # (AUTO) 1.2 K/uL (1.0-4.8); LYMPHOCYTES % (AUTO) 18.5 % (22.0-44.0); MEAN CORPUSCULAR HGB CONC 34.5 G/dL (31.0-37.0); MEAN CORPUSCULAR VOLUME 96 fL (80-100); MONOCYTES # (AUTO) 0.4 K/uL (0.1-1.0); MONOCYTES % (AUTO) 6.8 % (2.0-9.0); NEUTROPHILS # (AUTO) 4.5 K/uL (1.8-7.7); NEUTROPHILS % (AUTO) 71.5 % (40.0-70.0); PLATELET COUNT (AUTO) 253 K/uL (150-450); RED BLOOD CELL COUNT(AUTO) 3.85 MIL/uL (4.50-5.90)
[2022-10-07 11:58] LABS: ANION GAP 12 mmol/L (8-16); CALCIUM, TOTAL 9.4 mg/dL (8.8-10.5); CARBON DIOXIDE 28 mmol/L (22-29); CHLORIDE 97 mmol/L (98-107); CREATININE 0.94 mg/dL (0.60-1.30); GLOMERULAR FILTR. RATE CALC > 60 mL/min (>60); GLUCOSE,RANDOM 250 mg/dL (70-110); POTASSIUM 3.6 mmol/L (3.5-5.1); SODIUM SERUM 137 mmol/L (136-145); UREA NITROGEN, BLOOD 21 mg/dL (7-18)
[2022-10-07 16:58] VITALS: BP 115/78
[2022-10-07] MEDS: ATORVASTATIN CALCIUM 20 MG TABLET PO SCH (19:48)
[2022-10-07 19:56] LABS: GLUCOMETER DEV NAME(LOC) 6N.2B; GLUCOSE,POINT OF CARE 186 MG/DL (70-110)
[2022-10-07 20:15] VITALS: BP 122/65
[2022-10-08] MEDS: HEPARIN SODIUM,PORCINE 5,000 UNITS/ML VIAL SQ SCH ×2 (01:15→08:10)
[2022-10-08] MEDS: HALOPERIDOL LACTATE 5 MG/ML VIAL IM PRN (04:05)
[2022-10-08] MEDS: INSULIN LISPRO 100 UNITS/ML SQ PRN (05:42)
[2022-10-08 05:46] VITALS: BP 117/52
[2022-10-08 06:46] LABS: GLUCOMETER DEV NAME(LOC) 6N.1; GLUCOSE,POINT OF CARE 217 MG/DL (70-110)
[2022-10-08 08:00] VITALS: BP 117/60
[2022-10-08] MEDS: QUEtiapine FUMARATE 25 MG TABLET PO SCH (08:09)
[2022-10-08] MEDS: CHOLECALCIFEROL (VIT D3) 2,000 UNITS [50 MCG] TABLET PO SCH (08:10)
[2022-10-08] MEDS: MULTIVITAMINS WITH MINERALS, THERAPEUTIC TABLET PO SCH (08:10)
[2022-10-08] MEDS: DOCUSATE SODIUM 100 MG CAPSULE PO SCH (08:10)
[2022-10-08] MEDS: MetFORMIN HCL 500 MG TABLET PO SCH (08:10)
[2022-10-08] MEDS: ASPIRIN 81 MG CHEWABLE TABLET PO SCH (08:10)
[2022-10-08] MEDS: ETHYL ALCOHOL 62% ANTISEPTIC NASAL SANITIZER 0.6 ML AMPUL NASAL SCH (08:11)
[2022-10-08 11:46] LABS: GLUCOMETER DEV NAME(LOC) 6N.2B; GLUCOSE,POINT OF CARE 225 MG/DL (70-110)
== END 2022-10-08 11:20 | DRG 65 ==
LOC: EMS 07:09 → AHU 08-30 00:47 → 6S 08-30 22:16 → 6N 09-17 05:11 → 6S 09-23 00:07
PROVIDERS: ADMIT Internal Medicine; ATTEND Internal Medicine
DX: I63.9 Cerebral infarction, unspecified (principal); E44.0 Moderate protein-calorie malnutrition; G91.9 Hydrocephalus, unspecified; M48.54XA Collapsed vertebra, not elsewhere classified, thoracic region, initial encounter for fracture; F23 Brief psychotic disorder; Z20.822 Contact with and (suspected) exposure to COVID-19; R62.7 Adult failure to thrive; R29.6 Repeated falls; R53.81 Other malaise; F25.9 Schizoaffective disorder, unspecified; E11.9 Type 2 diabetes mellitus without complications; R27.0 Ataxia, unspecified; I10 Essential (primary) hypertension; I67.9 Cerebrovascular disease, unspecified; Z78.1 Physical restraint status; Z86.73 Personal history of transient ischemic attack (TIA), and cerebral infarction without residual deficits; Z88.0 Allergy status to penicillin; Z99.3 Dependence on wheelchair; Z68.22 Body mass index [BMI] 22.0-22.9, adult; Z79.899 Other long term (current) drug therapy; Z79.82 Long term (current) use of aspirin; Z91.199 Patient's noncompliance with other medical treatment and regimen due to unspecified reason
CPT/HCPCS: 70470; 71045; 72125; 72128; 72131; 80048; 80053; 80307; 81001; 82962; 85025; 87081; 97116; 97162; 97164; 97167; 97530; 97535; 99291; G0480; J1200; J1630; J1644; J2060; J2250; J7050; Q9967; 36415-L1; 36415-TC